=== PATIENT | male | born 1965 | race Caucasian/White ===

== ENCOUNTER 2020-01-11 12:29 | Inpatient (IN) | payer OTHER, SELFPAY ==
[2020-01-11] VITALS (18 sets, daily range): BP systolic 98–141; BP diastolic 61–83; PULSE 49–87; RESP 14–30; TEMP 35.8–37.5; O2SAT 80–99; BMI 26.2; BMI 25.5
[2020-01-11] MEDS: fentaNYL 100 MCG/2 ML Ampul 50 MCG IV (13:13)
[2020-01-11] MEDS: Ondansetron 4 MG/2 ML Vial IV (13:13)
--- NOTE | 2020-01-11 13:28 | EKG12_ITS ---
Test Reason : Blood Pressure : / mmHG Vent. Rate : 050 BPM Atrial Rate : 050 BPM P-R Int : 170 ms QRS Dur : 074 ms QT Int : 482 ms P-R-T Axes : 054 -47 028 degrees QTc Int : 439 ms Sinus bradycardia with Premature supraventricular complexes Left axis deviation Low voltage QRS Septal infarct , age undetermined Abnormal ECG Confirmed by CHRISTOPHER GRAYSON ([id number]), copy editor GLORIA CROCKETT ([id number]) on 01/14/2020 11:37:30 AM Referred By: CHAN Confirmed By:CHRISTOPHER GRAYSON
--- NOTE | 2020-01-11 13:29 | RAD_ITS ---
STUDY: X-RAY CHEST REASON FOR EXAM: Male, 54 years old. Severe abd pain since 11am abruptly started at work TECHNIQUE: Single AP portable view of the chest. COMPARISON: None. FINDINGS: EKG electrodes are seen. Hyperinflation. Scattered calcified granulomas. There is no demonstrated pleural abnormality. There is borderline cardiomegaly. Normal mediastinum and shara. Normal visualized pulmonary arteries. There is atherosclerotic tortuosity of the aortic arch and descending thoracic aorta. Normal visualized thoracic spine. Normal visualized ribs, clavicles, and shoulders. Gaseous distention of the visualized small bowel. RAD/Chest 1 View (Portable) IMPRESSION: Hyperinflation. No acute thoracic abnormality is seen. Electronically Signed: Amado Dawson, at 14:08 EDT , Service support ,
--- NOTE | 2020-01-11 13:36 | CT_ITS ---
STUDY: CT ABDOMEN AND PELVIS WITH CONTRAST REASON FOR EXAM: Male, 54 years old. SUDDEN ONSET ABD PAIN. FREE AIR AROUND DIAPHRAGM. RADIATION DOSAGE (If Supplied By Facility): CTDIvol = ( 16.07 ) mGy, DLP = ( 616.20 ) mGycm TECHNIQUE: Transaxial images were obtained from the dome of the diaphragm to the symphysis pubis without oral contrast. was administered. Sagittal and coronal images were reconstructed. Individualized dose optimization techniques were used for this CT. COMPARISON: None. FINDINGS: Mild degree of increased linear markings at the lung bases suggestive of a atelectasis and/or scarring. Mild increased markings are also seen along the posterior aspect of the lingular segment of the left upper lobe. Moderate sized pericardial effusion. Coronary artery calcification. Normal liver. Normal gallbladder and extrahepatic biliary system. Normal spleen. Normal pancreas. Normal bilateral adrenal glands. Normal right kidney. Normal left kidney. Fluid distention of the stomach with a small hiatal hernia with fluid in the distal esophagus. 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 The superior mesenteric vein is to the left of the superior mesenteric artery. There is evidence of a whirled pattern of the root of the mesentery with mesenteric edema. There is also evidence of small bowel dilatation as well as dilatation of the right hemicolon. Normal colon. The appendix is visualized and appears normal. There is diffuse atherosclerotic calcification of the abdominal aorta, without a demonstrated aneurysm. Normal inferior vena cava. Normal retroperitoneum. Normal urinary bladder. Normal abdominal wall. Normal osseous structures. CT/Abdomen/Pelvis W IV Cont ONLY IMPRESSION: Moderate pericardial effusion. 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 Electronically Signed: Amado Dawson, at 14:24 EDT , Service support ,
[2020-01-11 13:43] LABS: Absolute Lymphocyte Count 1.84 X10^3/uL (0.83-4.51); Absolute Neutrophil Count 7.6 X10^3/uL (2.0-7.7); Basophil# 0.11 X10^3/uL; Basophil% 1.1 % (0-1); Eosinophil# 0.29 X10^3/uL; Eosinophils% 2.8 % (0-5); Hematocrit 51.6 % (40-54); Hemoglobin 16.3 g/dL (13.0-16.5); Lymphocyte # 1.84 X10^3/ul (4.0); Lymphocyte % 17.6 % (19-41); Mean Corp Hgb Conc 31.6 g/dL (32-36); Mean Corpuscular Hgb 30.3 pg (27.0-32.0); Mean Corpuscular Volume 95.9 fL (80-94); Mean Platelet Vol. 10.8 fl (6.2-12.0); Monocyte# 0.57 X10^3/uL; Monocyte% 5.4 % (0-10); NRBC Flagged by Analyzer 0 % (0-5); Neutrophil % 72.5 % (47-70); Platelet Count 263 K/mm3 (150-450); RBC Distribution Width CV 14.5 % (11.6-14.6); RBC Distribution Width SD 50.8 fl (35.1-43.9); Red Blood Count 5.38 M/mm3 (4.6-6.2); White Blood Count 10.5 K/mm3 (4.4-11.0)
[2020-01-11] MEDS: Morphine 4 MG/ML Syringe 6 MG IV (13:43)
--- NOTE | 2020-01-11 13:49 | ED.DCSUM_ITS ---
History of Present Illness Chief Complaint: Abd Pain Informant: Patient - Abdominal Pain/Flank Pain Onset: Today Context: Sudden Onset Timing: Continuous Quality: Sharp Location: Diffuse Current Severity: Severe Maximum Severity: Severe Worsened by: Movement Relieved by: Nothing - Nausea/Vomiting/Emesis GI Symptom: Nausea, Vomiting Onset: Today Quality: Nonbilious - Diarrhea/Melena/Hematochezia GI Symptom: Negative for: Diarrhea Narrative: Patient is a 54-year-old male with history of gastric ulcers and a questionable stomach or esophageal mass presenting with sudden onset of abdominal pain. Patient had sudden onset of diffuse abdominal pain at 11 AM today. EMS was called because the pain was so severe. Patient states he had pain like this in the past with GERD but is never been this severe. Patient's last EGD was 6 months to a year ago. He was following up with a doctor at [facility] next had a follow-up appointment 2 months ago but did not want a follow-up he was tired of seeing doctors. Patient had associated nausea and vomiting with this pain. He states he has only been passing gas today. He notes he does have a history of small bowel obstruction that was treated medically. Patient has any other complaints at this time. Past Medical History - Allergies and Home Meds Allergies/Adverse Reactions: Allergies No Known Allergies Allergy (Verified 01/11/20 12:38) Past Medical History: - - GERD, history of small bowel obstruction Surgical History: - - EGD Lives: Spouse/ Significant Other Smoking Status: Current every day smoker Alcohol: Occasional Drugs: None - Family History Maternal Family History: Reports: No pertinent history Review of Systems General: Denies: Chills, Fever, Sweats Eyes: Denies: Visual changes - bilaterally, Diplopia ENT: Denies: Rhinorrhea, Sore throat Cardiovascular: Denies: Chest pain, Palpitations Respiratory: Denies: Dyspnea, Cough, Dyspnea on exertion Gastrointestinal: Reports: Abdominal pain, Vomiting. Denies: Diarrhea, Melena, Hematochezia Genitourinary: Denies: Dysuria, Hematuria, Frequency Musculoskeletal: Denies: Back pain, Extremity Pain Skin: Denies: Rash, Wounds Neurological: Denies: Headache, Weakness, Numbness Physical Exam Vital Signs/Narrative: Vital Signs Temp Pulse Resp BP Pulse Ox 01/11/20 13:30 49 L 24 H 125/79 H 92 01/11/20 12:30 96.4 F L 69 30 H 136/83 H 95 Inital Vital Signs reviewed: Yes General: Well nourished, Well developed, No Acute Distress Head: Normocephalic, Atraumatic Eyes: Perrl, EOMI ENT: Moist mucous membranes, No rhinorrhea Neck: Supple, Nontender Cardiovascular: Regular rate, Regular rhythm, No murmurs Respiratory: No distress, CTA bilaterally, Chest nontender Abdomen: Tender, Guarding, Hypoactive bowel sounds, - - Abdomen distended, diffusely tender. Pain is out of proportion to exam. Back: Nontender, Normal Inspection Extremities: Nontender, No edema, - - 2 Plus bilateral pedal pulses. Skin: Normal color, No rash Neurological: Alert, Oriented x3, Cranial nerves II-XII grossly intact, Normal Strength, Normal Sensation Psychological: Normal affect, Normal Mood Diagnostic/Tx/Re-eval Clinical Impression(s) from Imaging Studies Chest X-Ray 01/11/20 13:29 IMPRESSION: Hyperinflation. No acute thoracic abnormality is seen. Electronically Signed: Amado Dawson, at 14:08 EDT , Service support , Abdomen/Pelvis CT 01/11/20 13:36 IMPRESSION: Moderate pericardial effusion. 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 Electronically Signed: Amado Dawson, at 14:24 EDT , Service support , Laboratory Data 01/11/20 01/11/20 01/11/20 12:36 12:40 12:40 WBC 10.5 RBC 5.38 Hgb 16.3 Hct 51.6 MCV 95.9 H MCH 30.3 MCHC 31.6 L RDW Std Deviation 50.8 H RDW Coeff of Julius 14.5 Plt Count 263 MPV 10.8 Immature Gran % (Auto) 0.600 Neut % (Auto) 72.5 H Lymph % (Auto) 17.6 L [place] % (Auto) 5.4 Eos % (Auto) 2.8 Baso % (Auto) 1.1 H Absolute Neuts (auto) 7.6 Absolute Lymphs (auto) 1.84 Nucleated RBC % 0 Sodium 139 Potassium 3.8 Chloride 108 H Carbon Dioxide 23.0 Anion Gap 8 BUN 13 Creatinine 1.25 Estim Creat Clear Calc 69.76 Est GFR (MDRD) Af Amer 77 Est GFR (MDRD) Non-Af 64 BUN/Creatinine Ratio 10.4 Glucose 145 H Lactic Acid Calcium 8.9 Total Bilirubin 0.50 AST 25 ALT 27 Alkaline Phosphatase 106 Troponin I < 0.015 Total Protein 7.8 Albumin 3.8 Globulin 4.0 Albumin/Globulin Ratio 1.0 Lipase 187 POC Glucose 101 01/10/ 12:40 WBC RBC Hgb Hct MCV MCH MCHC RDW Std Deviation RDW Coeff of Julius Plt Count MPV Immature Gran % (Auto) Neut % (Auto) Lymph % (Auto) [place] % (Auto) Eos % (Auto) Baso % (Auto) Absolute Neuts (auto) Absolute Lymphs (auto) Nucleated RBC % Sodium Potassium Chloride Carbon Dioxide Anion Gap BUN Creatinine Estim Creat Clear Calc Est GFR (MDRD) Af Amer Est GFR (MDRD) Non-Af BUN/Creatinine Ratio Glucose Lactic Acid 4.1 H* Calcium Total Bilirubin AST ALT Alkaline Phosphatase Troponin I Total Protein Albumin Globulin Albumin/Globulin Ratio Lipase POC Glucose - Rhythm Strip Rhythm Strip: Sinus Rhythm Rate: 50 Ectopy: None - EKG Initial EKG Interpretation: Sinus Bradycardia, - - Sinus bradycardia at a rate of 50 Left axis deviation Low voltage QRS Sinus arrhythmia presents Normal ST segments - Medical Decision Making Patient is evaluated for sudden onset of abdominal pain. On exam he has a peritoneal abdomen with pain out of proportion. He is given multiple doses of pain medication without significant improvement of his pain. Initial differential includes acute perforation, gut and possibly dissection. I initially ordered a CTA study but also a upright chest looking for free air. X- ray was concerning for free air so CTA of the chest abdomen pelvis was then changed to a CT abdomen pelvis with IV contrast. Surgery was contacted before any imaging was resulted in my high clinical concern. Lactate is elevated at 4.4. I do not suspect acute infection, I suspect this is from whenever surgical emergency is going on. CT showed midgut volvulus. This explains patient's presentation. Surgery was informed of this and will take patient emergently to the OR. He is given IV Zosyn per surgery's recommendation. Patient and his are agreeable with this plan. Patient remains hemodynamically stable in the emergency room. ED Disposition - Plan for ED Patient: Disposition: Acute Care Hospital [facility] Diagnosis: Midgut volvulus, Acute abdominal pain, Lactic acidosis
[2020-01-11 13:59] LABS: AST(SGOT) 25 U/L (15-37); Alanine Aminotransfer ALT/SGPT 27 U/L (16-61); Albumin, Serum 3.8 g/dL (3.2-5.0); Alkaline Phosphatase 106 U/L (45-117); Anion Gap 8 (5-15); BUN 13 mg/dL (7-18); BUN/Creat Ratio 10.4 RATIO (10-20); Calcium,Total 8.9 mg/dL (8.5-10.1); Chloride 108 mmol/L (98-107); Creatinine, Serum 1.25 mg/dL (0.70-1.30); EST Glomerular Filtration Rate 64 mL/min (>60); Est Glom Filt Rate - Afr Amer 77 mL/min (>60); Estimated Creatinine Clearance 69.76 ml/min; Glucose 145 mg/dL (74-106); Lipase 187 U/L (73-393); Potassium 3.8 mmol/L (3.5-5.1); Protein, Total 7.8 g/dL (6.4-8.2); Sodium Level 139 mmol/L (136-145)
[2020-01-11 14:01] LABS: Lactic Acid 4.1 mmol/L (0.4-1.9)
[2020-01-11 14:21] LABS: Bedside Glucose 101 mg/dL (70-110)
[2020-01-11] MEDS: HYDROmorphone 1 MG/ML Syringe IV (14:45)
--- NOTE | 2020-01-11 14:51 | HP.PCM_ITS ---
History of Present Illness Date of Admission: 01/11/20 The patient is a 54 year old M presented to the ER due to diffuse abdominal pain started at 1030 this morning. Patient had nausea did not have any vomiting last bowel movement was normal last night. Patient states he does have a history of having bowel obstruction in the past which resolved without surgery. Patient has had umbilical hernia repair with mesh and a laparoscopic cholecystectomy in the past. Patient CT abdomen pelvis shows twisting of the small bowel mesentery, white blood cell count normal with left shift, lactic acid 4.4. Patient states he had a colonoscopy about a year ago which was normal. Previous abdominal surgeries include laparoscopic cholecystectomy, right inguinal hernia repair with mesh open. Past Medical History Medical History: Medical History (Last Updated 01/11/20 @ 17:[address] Lee Ann English MD) GERD (gastroesophageal reflux disease) (Acute) K21.9 Allergies No Known Allergies Allergy (Verified 01/11/20 12:38) Home Medications: Ambulatory Orders Medication Instructions Recorded Reflux Pill 01/11/20 Surgical History: cholecystectomy, - - Right inguinal hernia repair with mesh, EGD/colonoscopy Psychiatric History: No pertinent psych hx Lives: Spouse/ Significant Other Smoking Status: Current every day smoker Alcohol: Occasional Drugs: None - *Family History Maternal History Items: No pertinent history Review of Systems Constitutional: Reports: Anorexia Eyes: Denies: Blurred vision Gastrointestinal: Reports: Abdominal Pain, Nausea VTE Information - Inpt Only VTE Present on Admission: Yes VTE Mechan Device Prophylaxis: SCD's VTE Pharm Prophylaxis ordered?: No - Physical Exam Vitals/I&O's: Vital Signs Temp Pulse Resp BP Pulse Ox 96.4 F L 49 L 24 H 125/79 H 92 01/11/20 12:30 01/11/20 13:30 01/11/20 13:30 01/11/20 13:30 01/11/20 13:30 Oxygen Delivery Method Room Air Weight: 182 lb 8.684 oz Body Mass Index (BMI) 26.2 Finger Stick Blood Glucose 101 General: Alert, Cooperative, - - No acute distress Lungs: Normal air movement Cardiovascular: Regular rate Abdomen: Distended - Moderate, Tender - Diffusely, guarding equivocal rebound Extremities: No clubbing, No cyanosis, No edema Neurological: Cranial nerves II-XII grossly intact Psych/Mental Status: Agitated - Due to pain Laboratory Results 01/11/20 12:36: POC Glucose 101 01/11/20 12:40: WBC 10.5, RBC 5.38, Hgb 16.3, Hct 51.6, MCV 95.9 H, MCH 30.3, MCHC 31.6 L, RDW Std Deviation 50.8 H, RDW Coeff of Julius 14.5, Plt Count 263, MPV 10.8, Immature Gran % (Auto) 0.600, Neut % (Auto) 72.5 H, Lymph % (Auto) 17.6 L, [place] % (Auto) 5.4, Eos % (Auto) 2.8, Baso % (Auto) 1.1 H, Absolute Neuts (auto) 7.6, Absolute Lymphs (auto) 1.84, Nucleated RBC % 0 01/11/20 12:40: Sodium 139, Potassium 3.8, Chloride 108 H, Carbon Dioxide 23.0, Anion Gap 8, BUN 13, Creatinine 1.25, Estim Creat Clear Calc 69.76, Est GFR (MDRD) Af Amer 77, Est GFR (MDRD) Non-Af 64, BUN/Creatinine Ratio 10.4, Glucose 145 H, Calcium 8.9, Total Bilirubin 0.50, AST 25, ALT 27, Alkaline Phosphatase 106, Troponin I < 0.015, Total Protein 7.8, Albumin 3.8, Globulin 4.0, Album in/Globulin Ratio 1.0, Lipase 187 01/11/20 12:40: Lactic Acid 4.1 H* Current Medications Sodium Chloride () 1,000 mls @ 999 mls/hr IV .Q1H1M ONE Stop: 01/11/20 14:56 Piperacillin Sod/Tazobactam (Sod 3.375 gm/ Sodium Chloride) 50 mls @ 100 mls/hr IV X1 ONE Stop: 01/11/20 15:01 Assessment/Plan 54-year-old male with diffuse abdominal pain, CT abdomen pelvis consistent with twisting of the mesentery, elevated lactic acid 1. Will take patient urgently for exploratory laparoscopic, possible laparotomy, possible bowel resection, possible stoma the patient and his .. Discussed procedure including risk not limited to bleeding, infection, injury to another organ, need for further surgery, patient had no further questions at this time. Procedure essential: Yes On 09/29/2019 the [place] Department of Health ([facility]) Public Order signed by [facility] Director Aleta Jennings M.D., regarding the Management of Non-Essential Surgeries and Procedures for the purpose of preserving Personal Protective Equipment (PPE) and critical hospital capacity and resources within [place] went into effect as of 09/30/2019 at 5:00PM. According to the [facility] Public Order: This action will remain in full force and effect until the State of Emergency declared by the Governor no longer exists or the Director of the [facility] rescinds or modifies this Order. This [facility] order stated all non-essential or elective surgeries and procedures that utilize PPE should be delayed unless there is undue risk to the current or future health of a patient. After reviewing the aforementioned [facility] Public Order and the patients clinical case, I have determined that the scheduled procedure meets the criteria to go forward. Reason for performing procedure: There is a threat to the patient?s life if the surgery or procedure is not performed.
[2020-01-11] MEDS: 0.9% Normal Saline 1,000 ML 999 ML IV (14:54)
--- NOTE | 2020-01-11 14:55 | NURSING ---
SURGERY ROBOTHEM MID GUT VOLVULOUS
--- NOTE | 2020-01-11 15:00 | ED.RN ---
dr carson at bedside. dr reported to hold ng and iv/bloodwork. does not want to delay going to surgery they will get in ac/surgery.
[2020-01-11] MEDS: Bupiv/Epi 0.5% Mpf 30 ML Vial (15:07)
--- NOTE | 2020-01-11 16:54 | PCM.OPRPT ---
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 Surgery/Procedure Performed:: Exploratory laparoscopic, converted to laparotomy and twisting of small bowel mesentery fryer operator: [place] Type of Anesthesia:: General/Supplemental Anesthesiologist: Isidoro Dempsey Special Medications: Zosyn 3.375 g IV x1 given in the ER Specimen's removed: none Drains: oden 100 cc during case, 350 cc initial, NG- 450 cc Estimated Blood Loss (mL): <10 cc Fluids Replaced: 1000 cc Description of Procedure: Indications: 54-year-old male presents the ER due to abdominal pain CT abdomen pelvis was done which was consistent with mesenteric volvulus, patient had normal white blood count with left shift, lactic acid of 4.4 and pain out of proportion. Patient was emergently taken to the OR for exploratory laparoscopic, possible laparotomy. Description of the procedure: Patient was placed supine on the operating table, general anesthesia was induced using COVID precautions as he was unable to be tested for COVID due to no test availability and emergent need of surgery. Patient was placed in the low lithotomy position, NG and Oden placed. Abdomen prepped and draped in usual sterile fashion. A supraumbilical incision was made with a 15 blade scalpel deepened to the fascia fascia was elevated and incised, peritoneum was elevated and incised. Entry into the abdomen was confirmed visually. The Grace trocar was placed in the abdomen was insufflated to 12 to 15 mmHg. Laparoscope was placed. There is no injury due to trocar placement. The bowel was noted to be very dilated, no obvious bowel but some looked like it was starting to become dusky, small amount of chylous ascites seen. Decision was made to convert to a laparotomy. 10 blade scalpel was used to make a midline incision deepened with electrocautery to the fascia. The pneumoperitoneum was released through viral filter prior to entering the abdomen. Once in the abdomen the small bowel was noted to be very dilated especially the proximal small bowel almost looked like haustra, there is noted to be a tight twist of the mesentery involving the superior mesenteric artery this was untwisted. There was some white changes to the central mesentery from likely lymphatic obstruction from this volvulus as well. The small bowel was ran completely and was all viable there is a good palpable pulse in the mesentery. The fluid was milked into the colon. There were some small lymphadenopathy in the central deep mesentery; however there is no obvious adenopathy near the small bowel, decided not to try to excise one of the lymph nodes as they were deep and likely reactive. Colon was also ran and filled with air/liquid no obvious lesions felt, liver palpated again no lesions on exam, NG was placed and confirmed placement in the stomach. Abdomen was irrigated with small amount of saline. The small bowel was reduced back into the abdomen. Hemostasis was assured. the fascia was closed with 1-0 PDS running suture. Local anesthesia of 0.5 Marcaine 30 cc were used throughout the case. And was closed with skin regine. Incision was dressed with 4 x 4's and tape. Patient was extubated. Patient tolerated procedure well was taken to the postanesthesia care unit in stable condition. - Complications None
[2020-01-11 17:41] LABS: Reflex Lactate? Y
[2020-01-11] MEDS: 0.9% Normal Saline 1,000 ML 130 ML IV ×2 (18:09→19:34)
[2020-01-11 21:20] LABS: Lactic Acid 1.3 mmol/L (0.4-1.9)
[2020-01-12] VITALS (9 sets, daily range): BP systolic 98–121; BP diastolic 63–81; PULSE 55–85; RESP 18–20; TEMP 36.6–37.2; O2SAT 77–98
[2020-01-12] MEDS: 0.9% Normal Saline 1,000 ML 130 ML IV (03:34)
[2020-01-12 05:10] LABS: Color, Urine Yellow (Yellow); Glucose, Dipstick Normal (Normal); Ketone-Dipstick 15 mg/dl (Negative); Leukocyte Esterase-Dipstick 100 /ul (Negative); Mucous, Urine 0 SEEN /hpf (<or=2+); Nitrite-Dipstick Negative (Negative); Occult Blood-Urine 250 /ul (Negative); Protein-Dipstick 30 mg/dl (Negative); Specific Gravity, Urine 1.025 (1.002-1.030); Squamous Epithelial Cells - UA 0 SEEN /hpf (0-5); Urine Bilirubin Dipstick Negative (Negative); Urine Clarity Sl. Cloudy (Clear); Urine Urobilinogen Normal (Normal)
[2020-01-12 06:00] LABS: Absolute Lymphocyte Count 0.86 X10^3/uL (0.83-4.51); Absolute Neutrophil Count 6.2 X10^3/uL (2.0-7.7); Basophil# 0.05 X10^3/uL; Basophil% 0.6 % (0-1); Eosinophil# 0.01 X10^3/uL; Eosinophils% 0.1 % (0-5); Hematocrit 45.8 % (40-54); Hemoglobin 14.6 g/dL (13.0-16.5); Lymphocyte # 0.86 X10^3/ul (4.0); Lymphocyte % 10.7 % (19-41); Mean Corp Hgb Conc 31.9 g/dL (32-36); Mean Corpuscular Hgb 30.5 pg (27.0-32.0); Mean Corpuscular Volume 95.6 fL (80-94); Monocyte# 0.85 X10^3/uL; Monocyte% 10.6 % (0-10); NRBC Flagged by Analyzer 0 % (0-5); Neutrophil # 6.22 X10^3/uL (2.7-7.7); Neutrophil % 77.8 % (47-70); Platelet Count 225 K/mm3 (150-450); RBC Distribution Width CV 14.5 % (11.6-14.6); Red Blood Count 4.79 M/mm3 (4.6-6.2)
[2020-01-12 06:43] LABS: Bacteria RARE /hpf (None Seen); Red Blood Cells-Urine 10-25 SEEN /hpf (0-5); Transitional Epithelial - Ur 0-5 SEEN /hpf (0-5); White Blood Cells 10-25 SEEN /hpf (0-5)
[2020-01-12 06:51] LABS: Anion Gap 5 (5-15); BUN 13 mg/dL (7-18); BUN/Creat Ratio 12.5 RATIO (10-20); Calcium,Total 7.3 mg/dL (8.5-10.1); Chloride 114 mmol/L (98-107); Creatinine, Serum 1.04 mg/dL (0.70-1.30); EST Glomerular Filtration Rate 79 mL/min (>60); Est Glom Filt Rate - Afr Amer 96 mL/min (>60); Estimated Creatinine Clearance 83.84 ml/min; Glucose 97 mg/dL (74-106); Sodium Level 140 mmol/L (136-145)
--- NOTE | 2020-01-12 08:59 | PCM.PN.SRG ---
Patient Problems: Active and Suspected Problems (Last Updated 01/11/20 @ 17:[address] Lee Ann English MD) Midgut volvulus (Acute) Acute abdominal pain (Acute) Lactic acidosis (Acute) GERD (gastroesophageal reflux disease) (Acute) Subjective: Patient's Arora was removed this morning due to getting urine output, patient denies abdominal pain has not had any pain meds, would like the NG out however it did put out 500ccovernight - Physical Exam Vitals/I&O's: Vital Signs Temp Pulse Resp BP Pulse Ox 98.9 F 66 18 104/67 98 01/12/20 06:07 01/12/20 06:07 01/12/20 06:07 01/12/20 06:07 01/12/20 06:07 Oxygen Flow Rate (L/min) 6 Oxygen Delivery Method Simple Mask Weight: 178 lb Body Mass Index (BMI) 25.5 Finger Stick Blood Glucose 101 Intake and Output for Last 24 Hours 01/10/20 01/11/20 01/12/20 23:59 23:59 23:59 Intake Total 3199 / 3199 957.67 / 957.67 Output Total 550 / 925 825 / 825 Balance 2649 / 2274 132.67 / 132.67 General: Alert, Oriented x3, Cooperative, No apparent distress Lungs: Normal air movement Cardiovascular: Regular rate Abdomen: Soft, Distended - Mild to moderate, Tender - mild near incision dressed with gauze and tape, no peritoneal signs Extremities: No clubbing, No cyanosis, No edema Laboratory Results 01/11/20 12:36: POC Glucose 101 01/11/20 12:40: WBC 10.5, RBC 5.38, Hgb 16.3, Hct 51.6, MCV 95.9 H, MCH 30.3, MCHC 31.6 L, RDW Std Deviation 50.8 H, RDW Coeff of Julius 14.5, Plt Count 263, MPV 10.8, Immature Gran % (Auto) 0.600, Neut % (Auto) 72.5 H, Lymph % (Auto) 17.6 L, Barber % (Auto) 5.4, Eos % (Auto) 2.8, Baso % (Auto) 1.1 H, Absolute Neuts (auto) 7.6, Absolute Lymphs (auto) 1.84, Nucleated RBC % 0 01/11/20 12:40: Sodium 139, Potassium 3.8, Chloride 108 H, Carbon Dioxide 23.0, Anion Gap 8, BUN 13, Creatinine 1.25, Estim Creat Clear Calc 69.76, Est GFR (MDRD) Af Amer 77, Est GFR (MDRD) Non-Af 64, BUN/Creatinine Ratio 10.4, Glucose 145 H, Calcium 8.9, Total Bilirubin 0.50, AST 25, ALT 27, Alkaline Phosphatase 106, Troponin I < 0.015, Total Protein 7.8, Albumin 3.8, Globulin 4.0, Albumin/Globulin Ratio 1.0, Lipase 187 01/11/20 12:40: Lactic Acid 4.1 H* 01/11/20 12:40: Magnesium 2.0 01/11/20 20:24: Lactic Acid 1.3 01/12/20 05:00: Urine Color Yellow, Urine Clarity Sl. Cloudy, Urine pH 5.0, Ur Specific Antlers 1.025, Urine Protein 30 H, Urine Glucose (UA) Normal, Urine Ketones 15 H, Urine Occult Blood 250 H, Urine Nitrite Negative, Urine Bilirubin Negative, Urine Urobilinogen Normal, Ur Leukocyte Esterase 100 H, Urine RBC 10-25 SEEN, Urine WBC 10-25 SEEN, Ur Squamous Epith Cells 0 SEEN, Ur Transition Epith Cell 0-5 SEEN, Urine Bacteria RARE, Urine Mucus 0 SEEN 01/12/20 05:48: WBC 8.0, RBC 4.79, Hgb 14.6, Hct 45.8, MCV 95.6 H, MCH 30.5, MCHC 31.9 L, RDW Std Deviation 51.0 H, RDW Coeff of Julius 14.5, Plt Count 225, MPV 10.0, Immature Gran % (Auto) 0.200, Neut % (Auto) 77.8 H, Lymph % (Auto) 10.7 L, Barber % (Auto) 10.6 H, Eos % (Auto) 0.1, Baso % (Auto) 0.6, Absolute Neuts (auto) 6.2, Absolute Lymphs (auto) 0.86, Nucleated RBC % 0 01/12/20 05:48: Sodium 140, Potassium 4.0, Chloride 114 H, Carbon Dioxide 21.0, Anion Gap 5, BUN 13, Creatinine 1.04, Estim Creat Clear Calc 83.84, Est GFR (MDRD) Af Amer 96, Est GFR (MDRD) Non-Af 79, BUN/Creatinine Ratio 12.5, Glucose 97, Calcium 7.3 L Current Medications Enoxaparin Sodium (Lovenox) 40 mg SC DAILY ISABELLA Pantoprazole Sodium 40 mg/ (Sodium Chloride) 110 mls @ 330 mls/hr IV Q24 ISABELLA Last Infusion: 01/11/20 20:12 Dose: Infused Documented by: Sodium Chloride () 1,000 mls @ 100 mls/hr IV .Q10H ISABELLA Morphine Sulfate () 2 - 4 mg IV Q2H PRN PRN PRN Reason: Pain Score 1-10/10 Morphine Sulfate () 2 - 4 mg IV Q2H PRN PRN PRN Reason: Pain Score 1-10/10 Nicotine (Nicoderm Cq (Pbkc)) 21 mg TRANSDERM. DAILY ISABELLA Last Admin: 01/11/20 22:23 Dose: Not Given Documented by: Ondansetron HCl (Zofran) 4 mg IV Q8H PRN PRN PRN Reason: NAUSEA Sodium Chloride () 10 - 40 ml IV UD PRN PRN Reason: SALINE FLUSH Throat Lozenges (Cepacol Sore Throat Lozenge) 1 - 2 lozenge MUCOUS MEM Q2H PRN PRN PRN Reason: SORE THROAT Medical Necessity - Tobacco Use Smoking Status: Current every day smoker Assessment/Plan All Active Problems (Last Updated 01/11/20 @ 17:[address] Lee Ann English MD) Midgut volvulus (Acute) Acute abdominal pain (Acute) Lactic acidosis (Acute) GERD (gastroesophageal reflux disease) (Acute) 54-year-old male Postop day 1 status post exploratory laparoscopic converted to laparotomy with untwisting of the small bowel mesentery 1. Continue n.p.o./IV fluids and NG. We will clamp NG and check residual in 2 to 3 hours. Patient denies any flatus or bowel movement or nausea. Await bowel function 2. Encourage ambulation 3. PPI due to reflux, Lovenox ordered 4. Arora removed this morning for a good urine output Lee Ann English M.D. Pager: [phone] [facility] [address] [place] [address], [facility], [address] [place], [place] [id number] Office: [phone]
[2020-01-12] MEDS: 0.45% Normal Saline 1,000 ML 100 ML IV ×2 (09:28→20:00)
[2020-01-12] MEDS: Morphine 4 MG/ML Syringe IV ×2 (09:31→15:04)
[2020-01-12] MEDS: BENZOCAINE/MENTHOL 1 LOZENGE MUCOUS MEM (09:32)
[2020-01-12] MEDS: Enoxaparin 40 MG/0.4 ML Syringe SC (09:37)
--- NOTE | 2020-01-12 11:05 | CASEMGMT ---
RN CM Face to Face with patient for initial transition planning/care coordination assessment. RN CM introduced self and role at [facility]. Patient lying in bed, alert and oriented, at bedside. Patient willing to participate in assessment and is able to answer all questions appropriately. Care providers, pharmacy, and demographics verified. Patient wishes to discharge home, denies need for home health at this time. Patient states he has no further needs or concerns at this time. CM to follow for discharge planning needs that may arise. PCP: Bruce Specialists: JESSICA Pyle Preferred Pharmacy: Donovan Armas [facility] Retail at discharge Insurance: [employer] Prescription Benefit: yes Living Will/HPOA: yes, Stefanie Banks LNOK: Living Arrangements: Patient lives with in 2 story home. Patient independent at home. Transportation: self, DME/HHC: Patient denies any DME or previous HHC Disposition Plan: Patient to discharge home with family support and follow-up plans in place. Dottie HUN, RN, CM
[2020-01-12] MEDS: Morphine 2 MG/ML Syringe IV (21:53)
[2020-01-12] MEDS: 0.9% Saline Lock 10 ML Syringe IV (21:54)
[2020-01-13 05:30] VITALS: BP 108/72; PULSE 70; RESP 16; TEMP 36.7; O2SAT 94
[2020-01-13] MEDS: 0.45% Normal Saline 1,000 ML 100 ML IV ×2 (05:40→16:01)
[2020-01-13 07:09] VITALS: O2SAT 93
--- NOTE | 2020-01-13 07:55 | PN.SURG_ITS ---
Patient Problems: Active and Suspected Problems (Last Updated 01/11/20 @ 17:[address] Lee Ann English MD) Midgut volvulus (Acute) Acute abdominal pain (Acute) Lactic acidosis (Acute) GERD (gastroesophageal reflux disease) (Acute) Subjective: Patient states he has some soreness at the incision, only minimal flatus denies any nausea after NG removed yesterday. Patient has been able to void after Arora removed yesterday. - Physical Exam Vitals/I&O's: Vital Signs Temp Pulse Resp BP Pulse Ox 98.0 F 70 16 108/72 93 01/13/20 05:30 01/13/20 05:30 01/13/20 05:30 01/13/20 05:30 01/13/20 07:09 Oxygen Flow Rate (L/min) 5 Oxygen Delivery Method Room Air Weight: 177 lb 15.984 oz Body Mass Index (BMI) 25.5 Finger Stick Blood Glucose 101 Intake and Output for Last 24 Hours 01/11/20 01/12/20 01/13/20 23:59 23:59 23:59 Intake Total 3199 / 3199 2834.67 / 2909.67 1041.67 / 1041.67 Output Total 550 / 925 1275 / 1275 350 / 350 Balance 2649 / 2274 1559.67 / 1634.67 691.67 / 691.67 General: Alert, Oriented x3, Cooperative, No apparent distress Lungs: Normal air movement Cardiovascular: Regular rate Abdomen: Soft, Distended - Mild, Tender - Near incision clean dry and intact with regine, no peritoneal signs Extremities: No clubbing, No cyanosis, No edema Neurological: Cranial nerves II-XII grossly intact Psych/Mental Status: Normal Affect Laboratory Results 01/13/20 07:20: Sodium Pending, Potassium Pending, Chloride Pending, Carbon Dioxide Pending, Anion Gap Pending, BUN Pending, Creatinine Pending, Est GFR (MDRD) Af Amer Pending, Est GFR (MDRD) Non-Af Pending, BUN/Creatinine Ratio Pending, Glucose Pending, Calcium Pending Current Medications Enoxaparin Sodium (Lovenox) 40 mg SC DAILY [facility] Last Admin: 01/12/20 09:37 Dose: 40 mg Documented by: Pantoprazole Sodium 40 mg/ (Sodium Chloride) 110 mls @ 330 mls/hr IV Q24 [facility] Last Infusion: 01/12/20 10:00 Dose: Infused Documented by: Sodium Chloride () 1,000 mls @ 100 mls/hr IV .Q10H [facility] Last Admin: 01/13/20 05:40 Dose: 100 mls/hr Documented by: Morphine Sulfate () 2 - 4 mg IV Q2H PRN PRN PRN Reason: Pain Score 1-10/10 Last Admin: 01/12/20 21:53 Dose: 4 mg Documented by: Morphine Sulfate () 2 - 4 mg IV Q2H PRN PRN PRN Reason: Pain Score 1-10/10 Last Admin: 01/12/20 15:04 Dose: 4 mg Documented by: Nicotine (Nicoderm Cq (Pbkc)) 21 mg TRANSDERM. DAILY [facility] Last Admin: 01/12/20 09:34 Dose: 21 mg Documented by: Ondansetron HCl (Zofran) 4 mg IV Q8H PRN PRN PRN Reason: NAUSEA Sodium Chloride () 10 - 40 ml IV UD PRN PRN Reason: SALINE FLUSH Last Admin: 01/12/20 21:54 Dose: 10 ml Documented by: Throat Lozenges (Cepacol Sore Throat Lozenge) 1 - 2 lozenge MUCOUS MEM Q2H PRN PRN PRN Reason: SORE THROAT Last Admin: 01/12/20 09:32 Dose: 2 lozenge Documented by: Medical Necessity - Tobacco Use Smoking Status: Current every day smoker Assessment/Plan All Active Problems (Last Updated 01/11/20 @ 17:[address] Lee Ann English MD) Midgut volvulus (Acute) Acute abdominal pain (Acute) Lactic acidosis (Acute) GERD (gastroesophageal reflux disease) (Acute) 54-year-old male Postop day 2 status post exploratory laparoscopic converted to laparotomy with untwisting of the small bowel mesentery 1. Continue n.p.o./IV fluids until increased bowel function. 2. Encourage ambulation 3. PPI due to reflux, Lovenox ordered Lee Ann English M.D. Pager: [phone] [facility] [address] [place] [address], [facility], [address] [place] [address] Office: [phone]
[2020-01-13 08:02] LABS: Anion Gap 6 (5-15); BUN 11 mg/dL (7-18); BUN/Creat Ratio 13.4 RATIO (10-20); Calcium,Total 7.8 mg/dL (8.5-10.1); Chloride 112 mmol/L (98-107); Creatinine, Serum 0.82 mg/dL (0.70-1.30); EST Glomerular Filtration Rate 104 mL/min (>60); Est Glom Filt Rate - Afr Amer 126 mL/min (>60); Estimated Creatinine Clearance 106.33 ml/min; Glucose 78 mg/dL (74-106); Potassium 3.9 mmol/L (3.5-5.1); Sodium Level 138 mmol/L (136-145)
[2020-01-13] MEDS: Morphine 4 MG/ML Syringe IV (10:07)
[2020-01-13] MEDS: Enoxaparin 40 MG/0.4 ML Syringe SC (10:08)
[2020-01-13 11:30] VITALS: BP 111/67; PULSE 62; RESP 18; TEMP 36.6; O2SAT 92
[2020-01-13 16:13] VITALS: BP 125/84; PULSE 78; RESP 18; TEMP 36.7; O2SAT 93
[2020-01-13 22:13] VITALS: BP 126/90; PULSE 69; RESP 18; TEMP 36.6; O2SAT 96
[2020-01-14] MEDS: 0.45% Normal Saline 1,000 ML 100 ML IV (02:41)
[2020-01-14 04:13] VITALS: BP 108/73; PULSE 77; RESP 16; TEMP 36.7; O2SAT 94
[2020-01-14 05:00] VITALS: O2SAT 94
--- NOTE | 2020-01-14 07:16 | PCM.PN.SRG ---
Patient Problems: Active and Suspected Problems (Last Updated 01/11/20 @ 17:[address] Lee Ann English MD) Midgut volvulus (Acute) Acute abdominal pain (Acute) Lactic acidosis (Acute) GERD (gastroesophageal reflux disease) (Acute) Subjective: Patient tolerated clears denies any nausea or vomiting, is having a lot of flatus small bowel movement denies any abdominal pain since having the increased flatus - Physical Exam Vitals/I&O's: Vital Signs Temp Pulse Resp BP Pulse Ox 98.0 F 77 16 108/73 94 01/14/20 04:13 01/14/20 04:13 01/14/20 04:13 01/14/20 04:13 01/14/20 05:00 Oxygen Flow Rate (L/min) 2 Oxygen Delivery Method Nasal Cannula Weight: 177 lb 15.984 oz Body Mass Index (BMI) 25.5 Finger Stick Blood Glucose 101 Intake and Output for Last 24 Hours 01/12/20 01/13/20 01/14/20 23:59 23:59 23:59 Intake Total 2834.67 / 2909.67 2151.67 / 2551.67 1900 / 1900 Output Total 1275 / 1275 350 / 350 350 / 350 Balance 1559.67 / 1634.67 1801.67 / 2201.67 1550 / 1550 General: Alert, Oriented x3, Cooperative, No apparent distress HEENT: Atraumatic Lungs: Normal air movement Cardiovascular: Regular rate Abdomen: Soft, Non Tender, Non-Distended Extremities: No clubbing, No cyanosis, No edema Neurological: Cranial nerves II-XII grossly intact Psych/Mental Status: Normal Affect Laboratory Results 01/13/20 07:20: Sodium 138, Potassium 3.9, Chloride 112 H, Carbon Dioxide 20.0 L, Anion Gap 6, BUN 11, Creatinine 0.82, Estim Creat Clear Calc 106.33, Est GFR (MDRD) Af Amer 126, Est GFR (MDRD) Non-Af 104, BUN/Creatinine Ratio 13.4, Glucose 78, Calcium 7.8 L Current Medications Enoxaparin Sodium (Lovenox) 40 mg SC DAILY [facility] Last Admin: 01/13/20 10:08 Dose: 40 mg Documented by: Pantoprazole Sodium 40 mg/ (Sodium Chloride) 110 mls @ 330 mls/hr IV Q24 [facility] Last Infusion: 01/13/20 10:29 Dose: Infused Documented by: Sodium Chloride () 1,000 mls @ 100 mls/hr IV .Q10H [facility] Last Admin: 01/14/20 02:41 Dose: 100 mls/hr Documented by: Morphine Sulfate () 2 - 4 mg IV Q2H PRN PRN PRN Reason: Pain Score 1-1010 Last Admin: 01/12/20 21:53 Dose: 4 mg Documented by: Morphine Sulfate () 2 - 4 mg IV Q2H PRN PRN PRN Reason: Pain Score 1-1010 Last Admin: 01/13/20 10:07 Dose: 4 mg Documented by: Nicotine (Nicoderm Cq (Pbkc)) 21 mg TRANSDERM. DAILY [facility] Last Admin: 01/13/20 10:08 Dose: 21 mg Documented by: Ondansetron HCl (Zofran) 4 mg IV Q8H PRN PRN PRN Reason: NAUSEA Sodium Chloride () 10 - 40 ml IV UD PRN PRN Reason: SALINE FLUSH Last Admin: 01/12/20 21:54 Dose: 10 ml Documented by: Throat Lozenges (Cepacol Sore Throat Lozenge) 1 - 2 lozenge MUCOUS MEM Q2H PRN PRN PRN Reason: SORE THROAT Last Admin: 01/12/20 09:32 Dose: 2 lozenge Documented by: Medical Necessity - Tobacco Use Smoking Status: Current every day smoker Assessment/Plan All Active Problems (Last Updated 01/11/20 @ 17:[address] Lee Ann English MD) Midgut volvulus (Acute) Acute abdominal pain (Acute) Lactic acidosis (Acute) GERD (gastroesophageal reflux disease) (Acute) 54-year-old male Postop day 3 status post exploratory laparoscopic converted to laparotomy with untwisting of the small bowel mesentery 1. Patient is having flatus and small bowel movement. Tolerated clears, currently taking full's if tolerates regular diet okay for DC today. 2. Encourage ambulation 3. PPI due to reflux, Lovenox ordered We will also plan to obtain previous CT abdomen and chest from [facility] as ours did comment on a moderate pericardial effusion and it appears like 1 of the CAT scans in [facility] which I do not have the report from as it was from an outside facility not from [facility] also look to have pericardial effusion and that was back in 2019. Lee Ann English M.D. Pager: [phone] [facility] [address] [place] [address], [address] [place] [address] Office: [phone]
[2020-01-14 07:53] VITALS: O2SAT 88
[2020-01-14 08:02] VITALS: BP 113/81; PULSE 68; RESP 16; TEMP 36.6; O2SAT 93
--- NOTE | 2020-01-14 08:55 | DCINST_ITS ---
Discharge Diet: Light diet - advance as tolerated Discharge Activity: May not drive while taking narcotic pain medications. May shower in (days): 0 Lifting Restrictions: no lifting > 20lb x 2 wk, no strenous exercise x 5 weeks Call your doctor if your incision/area has: Continuous Slow Oozing, Sudden Increased Bleeding, Increased Pain/ Swelling, Increased Redness, Foul Smelling Discharge, Swelling at the incision site Call your doctor if you observe: Fever of 101 or Higher Remove Dressing in (days):: 0 - ok to remove today Additional Instructions: Okay to take ibuprofen 400-600 mg PO q6hr PRN along with the Percocet. Avoid Tylenol since there is already Tylenol in the Percocet. Take all pain meds with food. Allergies/Adverse Reactions: Allergies No Known Allergies Allergy (Verified 01/11/20 12:38) Medications to take at Discharge Pantoprazole Sodium [Protonix] 20 mg PO DAILY 01/11/20 Oxycodone HCl/Acetaminophen [Percocet 5/325] 1 - 2 tab PO Q6H PRN PRN 2 Days #10 tab 01/14/20 Primary Care Physician: Malathi Barrera NP-C [Primary Care Provider] - Test Results: Test results from this visit will be discussed in further detail at your follow- up appointment, if applicable. Please Follow Up With: Lee Ann English MD - After 5 PM and on the weekends call [phone] with any concerns When: Call the office [phone] for a f/u appt mid next wk for staple removal Proposed Discharge Date: 01/14/20
--- NOTE | 2020-01-14 09:04 | PCM.DC.SUM ---
Discharge Date and Diagnosis - Problem List Patient Problems: Active and Suspected Problems (Last Updated 01/11/20 @ 17:[address] Lee Ann English MD) Midgut volvulus (Acute) Acute abdominal pain (Acute) Lactic acidosis (Acute) GERD (gastroesophageal reflux disease) (Acute) Date of Admission: 01/11/20 Date of Discharge: 01/14/20 - Primary Discharge Diagnosis Acute Problems: Active Problems (Last Updated 01/11/20 @ 17:[address] Lee Ann English MD) Midgut volvulus (Acute) Acute abdominal pain (Acute) Lactic acidosis (Acute) GERD (gastroesophageal reflux disease) (Acute) - Secondary Discharge Diagnosis Chronic Problems: gerd Hospital Course and Treatment Imaging Results: Clinical Impression(s) from Imaging Studies Chest X-Ray 01/11/20 13:29 IMPRESSION: Hyperinflation. No acute thoracic abnormality is seen. Electronically Signed: Amado Dawson, at 14:08 EDT , Service support , Abdomen/Pelvis CT 01/11/20 13:36 IMPRESSION: Moderate pericardial effusion. 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 Electronically Signed: Amado Dawson, at 14:24 EDT , Service support , Operations: - - Exploratory laparoscopic converted to laparotomy with untwisting of the small bowel mesentery by Dr. English 01/11/2020 Procedures: None Summary of Care Provided: The patient is a 54 year old M patient presented to the ER due to diffuse abdominal pain which started this morning and got a lot worse by 10 AM. Patient has a history of occasional abdominal pain that would come and go nothing seemed to make better or worse patient thought it could be due to Protonix if he took the 40 mg instead of just the 20. Patient was seen at [facility] [place] [facility] in 2019 and manometry showed achalasia patient was plan to do POEM procedure however there is thickening of the distal esophagus so it was not done. Patient has been following with GI at [facility] Patient states he is never had pain this bad before. Had nausea denies any vomiting did have a bowel movement yesterday. Patient CT abdomen pelvis which showed twisting of the central mesentery with edema and dilated small bowel and what appeared to be colon and moderate pericardial effusion, patient's lactic acid was 4.4 had a normal white blood count with a left shift due to pain out of proportion patient was taken emergently for exploratory laparoscopically which was converted to laparotomy and the access of the superior mesenteric artery was noted to be twisted. This was untwisted and all bowel was viable. There is no noted of any obvious masses or adhesions in the small bowel or large bowel. Of note patient's proximal jejunum was dilated and also appears to have haustra which was the distended colon appearing in the CT abdomen pelvis. Patient previously had a small bowel follow-through at [facility] [place] [facility] which again this proximal jejunum appeared similarly. Postoperatively patient denied any abdominal pain did initially have an NG and Arora which were removed after bowel function and good urine output. By postop day 2 patient was having some flatus able to tolerate clears by postop day 3 patient was able to tolerate a regular diet and still denied any abdominal pain. Patient was able be DC'd home. Discussed with patient that he was on Protonix 40 mg IV throughout the hospitalization so his abdominal pain could have been from possible twisting and twisting of the bowels and not due to 40 mg of Protonix first thing 20 mg. Did encourage patient to continue on the Protonix. Also did discuss with patient as well as unsure why this did twist but there is no obvious adhesions or abnormal anatomy appreciated during surgery. We will attempt to get records from [facility] for the previous CT abdomen pelvis and chest reports as it appears he may have had a pericardial effusion at that time as well as I was able to view the images in the [employer] system but the reports were not available. Patient Problems: Active and Suspected Problems (Last Updated 01/11/20 @ 17:[address] Lee Ann English MD) Midgut volvulus (Acute) Acute abdominal pain (Acute) Lactic acidosis (Acute) GERD (gastroesophageal reflux disease) (Acute) - Physical Exam Vitals/I&O's: Vital Signs Temp Pulse Resp BP Pulse Ox 97.9 F 68 16 113/81 H 93 01/14/20 08:02 01/14/20 08:02 01/14/20 08:02 01/14/20 08:02 01/14/20 08:02 Oxygen Flow Rate (L/min) 2 Oxygen Delivery Method Room Air Weight: 177 lb 15.984 oz Body Mass Index (BMI) 25.5 Finger Stick Blood Glucose 101 Intake and Output for Last 24 Hours 01/12/20 01/13/20 01/14/20 23:59 23:59 23:59 Intake Total 2834.67 / 2909.67 2151.67 / 2551.67 2493.33 / 2493.33 Output Total 1275 / 1275 350 / 350 350 / 350 Balance 1559.67 / 1634.67 1801.67 / 2201.67 2143.33 / 2143.33 General: Alert, Oriented x3, Cooperative, No apparent distress HEENT: Atraumatic Lungs: Normal air movement Cardiovascular: Regular rate Abdomen: Soft, Non-Distended, Tender - Minimal tenderness at incision clean dry and intact with regine Extremities: No clubbing, No cyanosis, No edema Neurological: Cranial nerves II-XII grossly intact Psych/Mental Status: Normal Affect Current Medications Acetaminophen (Tylenol) 650 mg PO Q6H PRN PRN PRN Reason: Pain Score 1-10/10 Enoxaparin Sodium (Lovenox) 40 mg SC DAILY [facility] Last Admin: 01/13/20 10:08 Dose: 40 mg Documented by: Pantoprazole Sodium 40 mg/ (Sodium Chloride) 110 mls @ 330 mls/hr IV Q24 [facility] Last Infusion: 01/13/20 10:29 Dose: Infused Documented by: Morphine Sulfate () 2 - 4 mg IV Q2H PRN PRN PRN Reason: Pain Score 1-10/10 Last Admin: 01/12/20 21:53 Dose: 4 mg Documented by: Morphine Sulfate () 2 - 4 mg IV Q2H PRN PRN PRN Reason: Pain Score 1-10/10 Last Admin: 01/13/20 10:07 Dose: 4 mg Documented by: Nicotine (Nicoderm Cq (Pbkc)) 21 mg TRANSDERM. DAILY [facility] Last Admin: 01/13/20 10:08 Dose: 21 mg Documented by: Ondansetron HCl (Zofran) 4 mg IV Q8H PRN PRN PRN Reason: NAUSEA Oxycodone HCl (Oxyir) 5 - 10 mg PO Q4H PRN PRN PRN Reason: Pain Score 1-04/23 Sodium Chloride () 10 - 40 ml IV UD PRN PRN Reason: SALINE FLUSH Last Admin: 01/12/20 21:54 Dose: 10 ml Documented by: Throat Lozenges (Cepacol Sore Throat Lozenge) 1 - 2 lozenge MUCOUS MEM Q2H PRN PRN PRN Reason: SORE THROAT Last Admin: 01/12/20 09:32 Dose: 2 lozenge Documented by: Discharge Diet: Light diet - advance as tolerated Discharge Activity: May not drive while taking narcotic pain medications. May shower in (days): 0 Call your doctor if your incision/area has: Continuous Slow Oozing, Sudden Increased Bleeding, Increased Pain/ Swelling, Increased Redness, Foul Smelling Discharge, Swelling at the incision site Call your doctor if you observe: Fever of 101 or Higher Remove Dressing in (days):: 0 - ok to remove today Home Medications: Medications to take at Discharge Pantoprazole Sodium [Protonix] 20 mg PO DAILY 01/11/20 Oxycodone HCl/Acetaminophen [Percocet 5/325] 1 - 2 tab PO Q6H PRN PRN 2 Days #10 tab 01/14/20 Following Prescrptions Were Given to Patient: Oxycodone HCl/Acetaminophen [Percocet 5/325] 1 - 2 tab PO Q6H PRN PRN 2 Days #10 tab PRN Reason: Pain Transmission Status: Received by [facility] Primary Care Physician: Malathi Barrera NP-C [Primary Care Provider] - Please Follow Up With: Lee Ann English MD - After 5 PM and on the weekends call [phone] with any concerns When: Call the office [phone] for a f/u appt mid next wk for staple removal Additional Instructions: Okay to take ibuprofen 400-600 mg PO q6hr PRN along with the Percocet. Avoid Tylenol since there is already Tylenol in the Percocet. Take all pain meds with food. Disposition: Home Patient Condition:: Good Medical Necessity - Tobacco Use Smoking Status: Current every day smoker Meaningful Use Info Meaningful Use Diagnoses (Choose all that apply): None applicable
[2020-01-14] MEDS: 0.9% Saline Lock 10 ML Syringe IV (09:35)
--- NOTE | 2020-01-14 11:31 | PHA.DC.MC ---
Pharmacy Service has performed discharge medication reconciliation and counseling for this patient. 1. OXYCODONE/ACETAMINOPHEN 5/325MG 1-2 TABLETS PO Q6H PRN PAIN The patient's discharge medication list was reviewed for discrepancies and discrepancies were resolved. Home Medications Pantoprazole Sodium [Protonix] 20 mg PO DAILY 01/11/20 Oxycodone HCl/Acetaminophen [Percocet 5/325] 1 - 2 tab PO Q6H PRN PRN 2 Days #10 tab 01/14/20 The patient was counseled on the following discharge medications and changes in medications for homegoing were reviewed. The Reason for Use, instructions for use, and potential side effects were reviewed for all new medications. The patient's questions regarding all of their medications were answered. The patient was able to verbally demonstrate an understanding of their discharge medications.
--- NOTE | 2020-01-14 11:59 | NURSING ---
family at bedside
== END 2020-01-14 12:35 | disposition home or self-care (01) | DRG 330 ==
LOC: ED 14:51 → SDC 15:00 → ACINP 15:01 → MS3 16:29 → SDC 18:16 → MS3 18:16
PROVIDERS: Admitting Provider Surgery; Emergency Provider Emergency Medicine; PCP Nurse Practitioner Family; Visit Provider Surgery
PROC: 0DS80ZZ Reposition Small Intestine, Open Approach (ICD-10-PCS; CPT 44202; principal; 2020-01-11 15:05)
DX: K56.2 Volvulus (principal); E87.2 Acidosis; Z53.31 Laparoscopic surgical procedure converted to open procedure; K21.9 Gastro-esophageal reflux disease without esophagitis; Z87.11 Personal history of peptic ulcer disease; Z87.891 Personal history of nicotine dependence
CPT/HCPCS: 36415; 71045; 74177; 80048; 80053; 81001; 82962; 83605; 83690; 83735; 84484; 85025; 93005; 99251; 99284; J7030; Q9967; A4216; G0463; J2405

== ENCOUNTER 2020-01-15 13:35 | Inpatient (IN) | payer OTHER, SELFPAY ==
[2020-01-11 19:16] VITALS: BMI 25.5
[2020-01-15] VITALS (7 sets, daily range): BP systolic 100–124; BP diastolic 63–94; PULSE 68–81; RESP 16–20; TEMP 36.4–37.2; O2SAT 85–96; BMI 25.1; BMI 23.4; BMI 23.5
--- NOTE | 2020-01-15 14:00 | CT_ITS ---
STUDY: CT ABDOMEN AND PELVIS WITH CONTRAST REASON FOR EXAM: Male, 54 years old. Recent volvulus, hematemesis RADIATION DOSAGE (If Supplied By Facility): CTDIvol = ( 9.055 ) mGy, DLP = ( 474.46 ) mGycm TECHNIQUE: CT images were obtained from the dome of the diaphragm to the symphysis pubis without oral contrast. Oral and amp; IV GASTROGRAFIN and amp; 100ML ISOVUE 370 was administered. Sagittal and coronal images were reconstructed. Individualized dose optimization techniques were used for this CT. COMPARISON: None. FINDINGS: There is bilateral basal atelectasis. There is a small pericardial effusion. There is reflux of contrast from stomach into the distal esophagus. Abdominal solid organs are normal. There is no intraabdominal free gas. There is a small amount of free fluid surrounding the liver and in the pelvis. There is midline in the parietal incision outlined by skin regine. There are dilated loops of small bowel interspersed with decompressed normal size loops. Colon contains gas and is decompressed. Previously seen abnormal whirled appearance of the mesentery has resolved. CT/Abdomen/Pelvis WITH Contrast IMPRESSION: 1. Presumed small bowel obstruction, possibly partial high-grade or functional/nonmechanical. Surgical consultation is advised. Electronically Signed: Sebastien Hobbs, at 15:53 EDT Tel , Service support ,
--- NOTE | 2020-01-15 14:01 | ED.DCSUM_ITS ---
History of Present Illness Chief Complaint: GI Bleed Informant: Patient Onset: Yesterday Narrative: Patient was admitted to the hospital on Saturday and discharged yesterday. 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 Patient was discharged in the hospital yesterday. He has had 4 episodes of vomiting since going home. He states the material he is bringing up looks like black coffee grounds. He denies fever or chills. He is wondering if the oral pain medication may be causing his vomiting as he had previously been on IV pain meds and states that his stomach does not tolerate oral pain meds well. He did have a normal bowel movement last evening. - Past Medical History (1) GERD (gastroesophageal reflux disease) Status: Chronic (2) Midgut volvulus Status: Resolved Past Medical History - Allergies and Home Meds Allergies/Adverse Reactions: Allergies No Known Allergies Allergy (Verified 01/11/20 12:38) Primary Care Physician: Malathi Barrera NP-C [Primary Care Provider] - Doctors: Dr. English Prior records reviewed: Yes Surgical History: cholecystectomy, - - Right inguinal hernia repair with mesh, EGD/colonoscopy Smoking Status: Current every day smoker - Family History Maternal Family History: Reports: No pertinent history Review of Systems General: Denies: Chills, Fever Eyes: Denies: Visual changes - bilaterally ENT: Denies: Bilateral ear pain Cardiovascular: Denies: Chest pain Respiratory: Denies: Dyspnea, Cough Gastrointestinal: Reports: Abdominal pain, Nausea, Vomiting Musculoskeletal: Denies: Extremity Pain Skin: Reports: Wounds Neurological: Denies: Headache Hematologic: Denies: Easy bruising, Easy bleeding Allergy: Denies: Uticaria Physical Exam Vital Signs/Narrative: Vital Signs Temp Pulse Resp BP Pulse Ox 01/15/20 13:36 98 F 75 16 116/76 95 Inital Vital Signs reviewed: Yes General: Well nourished, Well developed Head: Normocephalic ENT: Moist mucous membranes Neck: Supple Cardiovascular: Regular rate, Regular rhythm Respiratory: No distress, CTA bilaterally Abdomen: Soft, Tender - Appropriate postop tenderness. Midline surgical incision intact and clean., Hypoactive bowel sounds Skin: Normal color Neurological: Alert Psychological: Normal affect, Normal Mood Diagnostic/Tx/Re-eval Impressions Abdomen/Pelvis CT 01/15/20 14:00 IMPRESSION: 1. Presumed small bowel obstruction, possibly partial high-grade or functional/nonmechanical. Surgical consultation is advised. Electronically Signed: Sebastien Hobbs, at 15:53 EDT Tel , Service support , 01/15/20 14:00 Abdomen/Pelvis WITH Contrast [CT] Stat 01/15/20 15:58 Abdomen Single View (Portable) [RAD] Stat Laboratory Results 01/15/20 01/15/20 14:30 14:30 WBC 11.8 H RBC 5.47 Hgb 16.7 H Hct 50.3 MCV 92.0 MCH 30.5 MCHC 33.2 RDW Std Deviation 47.3 H RDW Coeff of Julius 14.0 Plt Count 270 MPV 10.0 Immature Gran % (Auto) 0.400 Neut % (Auto) 81.1 H Lymph % (Auto) 9.5 L [place] % (Auto) 7.4 Eos % (Auto) 1.0 Baso % (Auto) 0.6 Absolute Neuts (auto) 9.5 H Absolute Lymphs (auto) 1.12 Nucleated RBC % 0 Sodium 140 Potassium 3.7 Chloride 105 Carbon Dioxide 28.0 Anion Gap 7 BUN 11 Creatinine 1.09 Estim Creat Clear Calc 79.99 Est GFR (MDRD) Af Amer 91 Est GFR (MDRD) Non-Af 75 BUN/Creatinine Ratio 10.1 Glucose 96 Calcium 8.7 - Medical Decision Making Patient was given Zofran for nausea. Dr. English reviewed the patient's work- up and images from home. She asked that we place an NG tube and she will come in to see the patient for admission. Patient is also ordered a dose of IV Protonix. Patient and family at bedside has been updated. ED Disposition - Plan for ED Patient: Disposition: Acute Care Hospital [facility] Diagnosis: Small bowel obstruction Referrals: Malathi Barrera, VIVEK-C [Primary Care Provider] -
[2020-01-15] MEDS: 0.9% Normal Saline 1,000 ML 150 ML IV (14:35)
[2020-01-15] MEDS: Ondansetron 4 MG/2 ML Vial IV (14:36)
[2020-01-15 14:41] LABS: Absolute Lymphocyte Count 1.12 X10^3/uL (0.83-4.51); Absolute Neutrophil Count 9.5 X10^3/uL (2.0-7.7); Basophil# 0.07 X10^3/uL; Basophil% 0.6 % (0-1); Eosinophil# 0.12 X10^3/uL; Hematocrit 50.3 % (40-54); Hemoglobin 16.7 g/dL (13.0-16.5); Lymphocyte # 1.12 X10^3/ul (4.0); Lymphocyte % 9.5 % (19-41); Mean Corp Hgb Conc 33.2 g/dL (32-36); Mean Corpuscular Hgb 30.5 pg (27.0-32.0); Monocyte# 0.87 X10^3/uL; Monocyte% 7.4 % (0-10); NRBC Flagged by Analyzer 0 % (0-5); Neutrophil # 9.53 X10^3/uL (2.7-7.7); Neutrophil % 81.1 % (47-70); Platelet Count 270 K/mm3 (150-450); RBC Distribution Width SD 47.3 fl (35.1-43.9); Red Blood Count 5.47 M/mm3 (4.6-6.2); White Blood Count 11.8 K/mm3 (4.4-11.0)
[2020-01-15 14:53] LABS: Anion Gap 7 (5-15); BUN 11 mg/dL (7-18); BUN/Creat Ratio 10.1 RATIO (10-20); Calcium,Total 8.7 mg/dL (8.5-10.1); Chloride 105 mmol/L (98-107); Creatinine, Serum 1.09 mg/dL (0.70-1.30); EST Glomerular Filtration Rate 75 mL/min (>60); Est Glom Filt Rate - Afr Amer 91 mL/min (>60); Estimated Creatinine Clearance 79.99 ml/min; Glucose 96 mg/dL (74-106); Potassium 3.7 mmol/L (3.5-5.1); Sodium Level 140 mmol/L (136-145)
--- NOTE | 2020-01-15 16:07 | NURSING ---
MED SURG SOB ROBOTHAM
[2020-01-15] MEDS: Lidocaine 4% 5 ML Ampul 2 ML INHALATION (16:24)
[2020-01-15] MEDS: Oxymetazoline 0.05% 1 SPRAY SPRAY.BTL 2 SPRAY NASAL (16:25)
--- NOTE | 2020-01-15 16:52 | PCM.HP.STD ---
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 Patient was not having abdominal pain when he left and was able to tolerate food. Patient states starting towards the evening he started noting some abdominal discomfort and by 8 PM was vomiting he states it was dark, coffee-ground he had several episodes of nausea and vomiting. Patient did call and I suggested they go to the ER. On ER work-up patient was found to have a blood count is 11.4 with a left shift, lactic acid pending, CT abdomen pelvis was done which does show dilated stomach and proximal small bowel, there is no noted volvulus of the mesentery on CT abdomen pelvis. Patient reports normal bowel function yesterday and this morning. Patient thought initially could be the pain meds that were causing issues with his stomach as he states he has a very sensitive stomach. Past Medical History Past Medical History (Chronic Problems): Chronic Problems (Last Updated 01/15/20 @ 14:[address] Lee Ann English MD) S/P right inguinal hernia repair (Chronic) GERD (gastroesophageal reflux disease) (Chronic) Medical History: Medical History (Last Updated 01/15/20 @ 14:[address] Lee Ann English MD) Achalasia (Acute) K22.0 dx at [facility] GERD (gastroesophageal reflux disease) (Chronic) K21.9 Allergies No Known Allergies Allergy (Verified 01/11/20 12:38) Home Medications: Ambulatory Orders Medication Instructions Recorded Pantoprazole Sodium [Protonix] 20 mg PO DAILY 01/11/20 Oxycodone HCl/Acetaminophen 1 - 2 tab PO Q6H PRN PRN 2 Days 01/14/20 [Percocet 5/325] #10 tab Surgical History: Surgical History (Last Updated 01/15/20 @ 14:[address] 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 Lee Ann English MD) Small bowel obstruction (Acute) - Physical Exam Vitals/I&O's: Vital Signs Temp Pulse Resp BP Pulse Ox 98 F 75 16 116/76 95 01/15/20 13:36 01/15/20 13:36 01/15/20 13:36 01/15/20 13:36 01/15/20 13:36 Oxygen Delivery Method Room Air Weight: 175 lb Body Mass Index (BMI) 25.1 Finger Stick Blood Glucose 101 General: Alert, Oriented x3, Cooperative, No apparent distress Lungs: Normal air movement Cardiovascular: Regular rate Abdomen: Soft, Non-Distended, Tender - Mostly on the right, no peritoneal signs, - - Incision clean dry and intact with regine mild erythema near regine Extremities: No clubbing, No cyanosis, No edema Neurological: Cranial nerves II-XII grossly intact Psych/Mental Status: Normal Affect Laboratory Results 01/15/20 14:30: WBC 11.8 H, RBC 5.47, Hgb 16.7 H, Hct 50.3, MCV 92.0, MCH 30.5, MCHC 33.2, RDW Std Deviation 47.3 H, RDW Coeff of Julius 14.0, Plt Count 270, MPV 10.0, Immature Gran % (Auto) 0.400, Neut % (Auto) 81.1 H, Lymph % (Auto) 9.5 L, [place] % (Auto) 7.4, Eos % (Auto) 1.0, Baso % (Auto) 0.6, Absolute Neuts (auto) 9.5 H, Absolute Lymphs (auto) 1.12, Nucleated RBC % 0 01/15/20 14:30: Sodium 140, Potassium 3.7, Chloride 105, Carbon Dioxide 28.0, Anion Gap 7, BUN 11, Creatinine 1.09, Estim Creat Clear Calc 79.99, Est GFR (MDRD) Af Amer 91, Est GFR (MDRD) Non-Af 75, BUN/Creatinine Ratio 10.1, Glucose 96, Calcium 8.7 01/15/20 16:45: Lactic Acid Pending Current Medications Sodium Chloride () 1,000 mls @ 150 mls/hr IV .[id number] [facility] Last Admin: 01/15/20 14:35 Dose: 150 mls/hr Documented by: Iopamidol (Contrast Allergy Check) 0 ml IV X1 ISABELLA Assessment/Plan All Active Problems (Last Updated 01/15/20 @ 14:[address] Lee Ann English MD) Midgut volvulus (Resolved) Acute abdominal pain (Acute) Lactic acidosis (Acute) Small bowel obstruction (Acute) Status post exploratory laparotomy (Acute) Achalasia (Acute) 54-year-old male with small bowel obstruction status post exploratory laparotomy due to his enteric volvulus on 01/10 1. N.p.o./IV fluids, will place NG to low intermittent wall suction. 2. Lactic acid pending likely could be high due to dehydration with his nausea and vomiting but will hydrate and recheck as well. 3. Pain control?did discuss with patient and his that if his pain does get worse to let us know as he could possibly need surgery during this hospitalization if pain gets worse or increased white blood cell count or changes in vital signs. Lee Ann English M.D. Pager: [phone] [facility] [address] [place] [address], [facility], [address] [place] [address] Office: [phone]
--- NOTE | 2020-01-15 17:10 | RAD_ITS ---
STUDY: X-RAY - ABDOMEN/PELVIS REASON FOR EXAM: Male, 54 years old. NG PLACEMENT 1ST ATTEMPT TECHNIQUE: Frontal view of the chest COMPARISON: None. FINDINGS: Gastric tube is coiled in the distal esophagus turning around superiorly. There is bilateral basilar opacities. RAD/Abdomen Single View (Portable) IMPRESSION: Gastric tube reversed and coiled in the distal esophagus, not reaching the stomach. Electronically Signed: Sebastien Hobbs, at 17:31 EDT Tel , Service support ,
--- NOTE | 2020-01-15 17:18 | RAD_ITS ---
STUDY: X-RAY - ABDOMEN/PELVIS REASON FOR EXAM: Male, 54 years old. NG PLACEMENT 2ND ATTEMPT TECHNIQUE: Frontal view of the upper abdomen COMPARISON: None. FINDINGS: Gastric tube has been advanced and is now located with its tip in the proximal fundus against the greater curvature. There is mild cardiomegaly and left lower lobe atelectasis. RAD/Abdomen Single View IMPRESSION: Gastric tube with tip in the proximal fundus. Electronically Signed: Sebastien Hobbs, at 17:35 EDT Tel , Service support ,
[2020-01-15] MEDS: 0.9% Normal Saline 1,000 ML 1000 ML IV (18:11)
[2020-01-15] MEDS: Morphine 4 MG/ML Syringe IV (18:35)
--- NOTE | 2020-01-15 18:55 | NURSING ---
PT states my stomach hurts after just getting morphine. rates pain 7/10 prior to morphine. Pt grabbing stomach and says its sour like. Pt shaking. Dr. English paged and informed. Pain is 9/10 after morphine. Pt states pain is worse after morphine and dr. English aware. Order to give 1mg dilaudid and then call back. Sp02 83% on RA.
[2020-01-15] MEDS: HYDROmorphone 1 MG/ML Syringe IV (19:19)
--- NOTE | 2020-01-15 19:21 | NURSING ---
dr. English called back. Pt states abd pain is a;little better after morphine. CBC and lactic ordered for 1944. Wants them stat but 30min into the 2nd Bolus which would be the .45% Ns bolus which would be at 1944. Lisa from lab called and made aware that its a stat order but also timed and cant put both in. Lisa said she would try her best.
[2020-01-15] MEDS: 0.45% Normal Saline 1,000 ML 999 ML IV (19:23)
[2020-01-15 20:00] LABS: Absolute Lymphocyte Count 1.15 X10^3/uL (0.83-4.51); Absolute Neutrophil Count 7.7 X10^3/uL (2.0-7.7); Basophil# 0.06 X10^3/uL; Basophil% 0.6 % (0-1); Eosinophil# 0.08 X10^3/uL; Eosinophils% 0.8 % (0-5); Hematocrit 47.1 % (40-54); Hemoglobin 15.2 g/dL (13.0-16.5); Lymphocyte # 1.15 X10^3/ul (4.0); Lymphocyte % 11.4 % (19-41); Mean Corp Hgb Conc 32.3 g/dL (32-36); Mean Corpuscular Hgb 30.5 pg (27.0-32.0); Mean Corpuscular Volume 94.4 fL (80-94); Mean Platelet Vol. 10.4 fl (6.2-12.0); Monocyte# 0.99 X10^3/uL; Monocyte% 9.8 % (0-10); NRBC Flagged by Analyzer 0 % (0-5); Neutrophil # 7.74 X10^3/uL (2.7-7.7); Platelet Count 226 K/mm3 (150-450); RBC Distribution Width CV 14.2 % (11.6-14.6); RBC Distribution Width SD 49.1 fl (35.1-43.9); Red Blood Count 4.99 M/mm3 (4.6-6.2); White Blood Count 10.1 K/mm3 (4.4-11.0)
[2020-01-15 20:38] LABS: Lactic Acid 1.7 mmol/L (0.4-1.9)
[2020-01-15 20:50] LABS: Reflex Lactate? Y
[2020-01-15] MEDS: HYDROmorphone 0.5 MG/0.5 ML SYRINGE IV (21:19)
[2020-01-16] MEDS: 0.9% Normal Saline 1,000 ML 150 ML IV ×2 (00:16→07:03)
[2020-01-16 01:49] VITALS: BP 118/67; PULSE 69; RESP 18; TEMP 36.5; O2SAT 94
--- NOTE | 2020-01-16 05:55 | RAD_ITS ---
STUDY: X-RAY - ABDOMEN/PELVIS REASON FOR EXAM: Male, 54 years old. SBO TECHNIQUE: Frontal views COMPARISON: None. FINDINGS: Atelectasis at the visualized lung bases. Cardiomegaly. Air fluid levels with mild dilatation of small bowel loops. Early obstructive pattern cannot be excluded. There is no demonstrated free abdominal air. Nasogastric tube with tip at the GE junction. It should be advanced further into the stomach. There are skin regine noted over the lower abdomen. Normal visualized osseous structures. RAD/Abd Inc Decub and/or Erect IMPRESSION: Mildly dilated small bowel loops with air-fluid levels. Early obstructive pattern cannot be excluded. Electronically Signed: Varinder Valerio DO at 8:47 EDT Tel [phone], Service support ,
[2020-01-16 06:00] LABS: Absolute Lymphocyte Count 1.51 X10^3/uL (0.83-4.51); Absolute Neutrophil Count 7.4 X10^3/uL (2.0-7.7); Basophil# 0.11 X10^3/uL; Basophil% 1.1 % (0-1); Eosinophil# 0.27 X10^3/uL; Eosinophils% 2.6 % (0-5); Hematocrit 46.7 % (40-54); Lymphocyte # 1.51 X10^3/ul (4.0); Lymphocyte % 14.6 % (19-41); Mean Corp Hgb Conc 32.1 g/dL (32-36); Mean Corpuscular Hgb 30.4 pg (27.0-32.0); Mean Corpuscular Volume 94.7 fL (80-94); Mean Platelet Vol. 10.6 fl (6.2-12.0); Monocyte# 0.96 X10^3/uL; Monocyte% 9.3 % (0-10); NRBC Flagged by Analyzer 0 % (0-5); Neutrophil # 7.44 X10^3/uL (2.7-7.7); Platelet Count 266 K/mm3 (150-450); RBC Distribution Width CV 14.2 % (11.6-14.6); RBC Distribution Width SD 49.3 fl (35.1-43.9); Red Blood Count 4.93 M/mm3 (4.6-6.2); White Blood Count 10.3 K/mm3 (4.4-11.0)
[2020-01-16 06:20] LABS: Anion Gap 9 (5-15); BUN 10 mg/dL (7-18); BUN/Creat Ratio 12.1 RATIO (10-20); Calcium,Total 7.7 mg/dL (8.5-10.1); Chloride 110 mmol/L (98-107); Creatinine, Serum 0.83 mg/dL (0.70-1.30); EST Glomerular Filtration Rate 103 mL/min (>60); Est Glom Filt Rate - Afr Amer 125 mL/min (>60); Estimated Creatinine Clearance 105.05 ml/min; Glucose 78 mg/dL (74-106); Potassium 3.3 mmol/L (3.5-5.1); Sodium Level 142 mmol/L (136-145)
[2020-01-16 07:39] LABS: Magnesium 1.8 mg/dL (1.6-2.6)
--- NOTE | 2020-01-16 07:51 | NURSING ---
Mg level is 1.8 at normal level so this nurse will start Kriders once they are up from pharmacy.
[2020-01-16] MEDS: Potassium Chloride 10mEq/100mL 10 MEQ/100 ML IV.SOLN. 100 MEQ IV BOLUS ×4 (08:34→11:51)
[2020-01-16] MEDS: Lactated Ringers 1,000 ML 100 ML IV ×2 (08:39→20:26)
[2020-01-16 08:42] VITALS: BP 118/71; PULSE 56; RESP 16; TEMP 36.5; O2SAT 94
[2020-01-16 08:45] VITALS: PULSE 56
--- NOTE | 2020-01-16 08:49 | NURSING ---
This nurse explained orders per Dr. Melendrez to advance NG 10cm and showed pt how much 10cm was. Pt refused. No! NO, I'm not letting you touch it. I am getting it out today. I havent slept all night, this thing hurts me and I want it out. This nurse offered pain medication and pt refused. I don't want it. My stomach feels better today and its not draining much anymore. This nurse explained reason/importance of NG tube. Pt still continues to refuse. Pt states I'm aloud to sign myself out if I want too. Pt requested for this nurse to have the papers ready after my potassium is done. 4hours so that will be 1'o'clock, give me my papers then.. This nurse has a call out to Dr. Melendrez.
--- NOTE | 2020-01-16 09:06 | NURSING ---
Dr. English is here on the unit and is aware that pt wants to leave AMA and does not want this nurse to advance NG tube. Dr. English is talking to pt at this time.
--- NOTE | 2020-01-16 09:22 | NURSING ---
Dr. English was in patients room and talked with pt. Pt agreed to stay, not leave AMA and keep NG down but not advance it, just keep it where it is. Dr. English is okay with this.
--- NOTE | 2020-01-16 09:23 | PCM.PN.SRG ---
Patient Problems: Active and Suspected Problems (Last Updated 01/15/20 @ 14:[address] Lee Ann English MD) Small bowel obstruction (Acute) Subjective: Patient's lactic acid did improve with IV fluids initially did have some increased pain after he got to the floor after getting the morphine, patient states he does have a sensitive stomach that Dilaudid did help. Patient has not had any further pain meds since then. Patient states he has been passing a fair amount of flatus. NG has put out a total of 900 cc since getting to the floor about 200 since 6 AM. KUB is still concerning for bowel obstruction, NG appears to barely be in the stomach patient does not want the NG advanced even after discussing, but NG is currently still functional. - Physical Exam Vitals/I&O's: Vital Signs Temp Pulse Resp BP Pulse Ox 97.7 F L 56 L 16 118/71 94 01/16/20 08:42 01/16/20 08:45 01/16/20 08:42 01/16/20 08:42 01/16/20 08:42 Oxygen Flow Rate (L/min) 2 Oxygen Delivery Method Nasal Cannula Weight: 163 lb 9 oz Body Mass Index (BMI) 23.4 Finger Stick Blood Glucose 101 Intake and Output for Last 24 Hours 01/14/20 01/15/20 01/16/20 23:59 23:59 23:59 Intake Total 2755 / 2755 1475 / 1475 Output Total 400 / 400 1000 / 1000 Balance 2355 / 2355 475 / 475 General: Alert, Oriented x3, Cooperative, No apparent distress HEENT: Atraumatic Lungs: Normal air movement Cardiovascular: Regular rate Abdomen: Soft, Non Tender, Non-Distended, - - Incision clean dry and intact with regine, no peritoneal signs Extremities: No clubbing, No cyanosis, No edema Laboratory Results 01/15/20 14:30: WBC 11.8 H, RBC 5.47, Hgb 16.7 H, Hct 50.3, MCV 92.0, MCH 30.5, MCHC 33.2, RDW Std Deviation 47.3 H, RDW Coeff of Julius 14.0, Plt Count 270, MPV 10.0, Immature Gran % (Auto) 0.400, Neut % (Auto) 81.1 H, Lymph % (Auto) 9.5 L, [place] % (Auto) 7.4, Eos % (Auto) 1.0, Baso % (Auto) 0.6, Absolute Neuts (auto) 9.5 H, Absolute Lymphs (auto) 1.12, Nucleated RBC % 0 01/15/20 14:30: Sodium 140, Potassium 3.7, Chloride 105, Carbon Dioxide 28.0, Anion Gap 7, BUN 11, Creatinine 1.09, Estim Creat Clear Calc 79.99, Est GFR (MDRD) Af Amer 91, Est GFR (MDRD) Non-Af 75, BUN/Creatinine Ratio 10.1, Glucose 96, Calcium 8.7 01/15/20 16:45: Lactic Acid 3.0 H* 01/15/20 18:58: WBC 10.1, RBC 4.99, Hgb 15.2, Hct 47.1, MCV 94.4 H, MCH 30.5, MCHC 32.3, RDW Std Deviation 49.1 H, RDW Coeff of Julius 14.2, Plt Count 226, MPV 10.4, Immature Gran % (Auto) 0.400, Neut % (Auto) 77.0 H, Lymph % (Auto) 11.4 L, [place] % (Auto) 9.8, Eos % (Auto) 0.8, Baso % (Auto) 0.6, Absolute Neuts (auto) 7.7, Absolute Lymphs (auto) 1.15, Nucleated RBC % 0 01/15/20 19:45: Lactic Acid 1.7 01/16/20 05:05: WBC 10.3, RBC 4.93, Hgb 15.0, Hct 46.7, MCV 94.7 H, MCH 30.4, MCHC 32.1, RDW Std Deviation 49.3 H, RDW Coeff of Julius 14.2, Plt Count 266, MPV 10.6, Immature Gran % (Auto) 0.400, Neut % (Auto) 72.0 H, Lymph % (Auto) 14.6 L, [place] % (Auto) 9.3, Eos % (Auto) 2.6, Baso % (Auto) 1.1 H, Absolute Neuts (auto) 7.4, Absolute Lymphs (auto) 1.51, Nucleated RBC % 0 01/16/20 05:05: Sodium 142, Potassium 3.3 L, Chloride 110 H, Carbon Dioxide 23.0, Anion Gap 9, BUN 10, Creatinine 0.83, Estim Creat Clear Calc 105.05, Est GFR (MDRD) Af Amer 125, Est GFR (MDRD) Non-Af 103, BUN/Creatinine Ratio 12.1, Glucose 78, Calcium 7.7 L 01/16/20 05:05: Magnesium 1.8 Current Medications Hydromorphone HCl (Dilaudid Inj) 0.5 - 1 mg IV Q2H PRN PRN PRN Reason: Pain Score 1-1010 Last Admin: 01/15/20 21:19 Dose: 1 mg Documented by: Pantoprazole Sodium 40 mg/ (Sodium Chloride) 110 mls @ 330 mls/hr IV Q24 ISABELLA Sodium Chloride () 250 mls @ 15 mls/hr IV .[id number] PRN PRN Reason: Saline Flush Sodium Chloride () 250 mls @ 15 mls/hr IV .[id number] PRN PRN Reason: Additional IVPB Infusion Potassium Chloride () 10 meq in 100 mls @ 100 mls/hr IV BOLUS Q1H [facility] Stop: 01/16/20 11:29 Last Admin: 01/16/20 08:34 Dose: 100 mls/hr Documented by: Lactated Ringer's () 1,000 mls @ 100 mls/hr IV .Q10H [facility] Last Admin: 01/16/20 08:39 Dose: 100 mls/hr Documented by: Ondansetron HCl (Zofran) 4 mg IV Q8H PRN PRN PRN Reason: NAUSEA Sodium Chloride () 10 - 40 ml IV UD PRN PRN Reason: SALINE FLUSH Throat Lozenges (Cepacol Sore Throat Lozenge) 1 - 2 lozenge MUCOUS MEM Q2H PRN PRN PRN Reason: SORE THROAT Medical Necessity - Tobacco Use Smoking Status: Current every day smoker Assessment/Plan All Active Problems (Last Updated 01/15/20 @ 14:[address] Lee Ann English MD) Midgut volvulus (Resolved) Acute abdominal pain (Acute) Lactic acidosis (Acute) Small bowel obstruction (Acute) Status post exploratory laparotomy (Acute) Achalasia (Acute) 54-year-old male with small bowel obstruction status post exploratory laparotomy due to his enteric volvulus on 01/10 1. N.p.o./IV fluids, will place NG to low intermittent wall suction. Patient is very uncomfortable with the NG in his nose did discuss with patient this is necessary and is already put out 900 since last night and 200 from 6 AM this morning. Will change the canister out and check output at noon and possibly do clamping trial. Did want to advance NG however patient is not interested in this, did review CT as well as KUB from this morning with the patient showing that there is still likely partial small bowel obstruction going on 2. Lactic acid improved after receiving fluids within normal limits yesterday 3. Currently patient denies any abdominal pain he would like to go home today did again reviewed the KUB from this morning that his bowels are not better and the NG is actually helping him feel better and wants this is removed he could start to have abdominal pain and nausea and vomiting again. Did also discuss with patient that if he were to leave today it would be AMA likely his insurance would not pay for the stay. Patient was agreeable with staying but would like the NG out as soon as possible. Lee Ann English M.D. Pager: [phone] [facility] [address] [place] [address], [address] [place] [address] Office: [phone]
--- NOTE | 2020-01-16 12:29 | NURSING ---
dr. English is aware that pt had 125ml in canister. Order to clamp for 3 hours and then check residuals.
[2020-01-16 16:12] VITALS: BP 112/79; PULSE 64; RESP 18; TEMP 36.6; O2SAT 95
--- NOTE | 2020-01-16 16:18 | NURSING ---
Ng tube unclamped. checked residuals and obained 150cc of clear, pale yellow color that reminds of phelgm. Informed Dr. English at this time and order to take out NG tube but she wants him to walk around.
--- NOTE | 2020-01-16 16:40 | NURSING ---
NG is out and pt is walking in [place] for the second lap around at unit at this time.
[2020-01-16 20:32] VITALS: BP 114/70; PULSE 65; RESP 16; TEMP 36.9; O2SAT 98
[2020-01-17 02:57] VITALS: BP 108/65; PULSE 68; RESP 16; TEMP 36.6; O2SAT 92
[2020-01-17] MEDS: Lactated Ringers 1,000 ML 80 ML IV (05:54)
--- NOTE | 2020-01-17 06:00 | RAD_ITS ---
STUDY: X-RAY - ABDOMEN/PELVIS REASON FOR EXAM: Male, 54 years old. SBO TECHNIQUE: Two AP supine views of the abdomen and pelvis. COMPARISON: January 16, 2020 2B abdomen FINDINGS: The NG tube is no longer visualized. There is lower lobe atelectasis. Partially visualized mild cardiac enlargement. There are midline surgical skin regine. There is lesser distention of the small bowel. There are a few minimally distended loops of small bowel centrally. There is a small amount of gas in the colon. The liver spleen and kidneys are partially obscured. Normal soft tissue structures. There are mild degenerative changes of the visualized lumbar spine. RAD/Abd Inc Decub and/or Erect IMPRESSION: Lesser caliber small bowel. Minimal postoperative ileus. Postoperative change midline. Lower lobe atelectasis. Mild cardiomegaly. Electronically Signed: Alejandra Hernandez MD at 6:25 EDT Tel , Service support ,
[2020-01-17 08:10] VITALS: BP 108/75; PULSE 65; RESP 14; TEMP 36.7; O2SAT 98
--- NOTE | 2020-01-17 09:56 | PN.SURG_ITS ---
Patient Problems: Active and Suspected Problems (Last Updated 01/15/20 @ 14:[address] Lee Ann English MD) Small bowel obstruction (Acute) Subjective: Denies any abdominal pain, tolerated clears this morning and had normal bowel movement. Patient is ready to go home. - Physical Exam Vitals/I&O's: Vital Signs Temp Pulse Resp BP Pulse Ox 98.1 F 65 14 108/75 98 01/17/20 08:10 01/17/20 08:10 01/17/20 08:10 01/17/20 08:10 01/17/20 08:10 Oxygen Flow Rate (L/min) 2 Oxygen Delivery Method Room Air Weight: 163 lb 9.01 oz Body Mass Index (BMI) 23.4 Finger Stick Blood Glucose 101 Intake and Output for Last 24 Hours 01/15/20 01/16/20 01/17/20 23:59 23:59 23:59 Intake Total 2755 / 2755 3719.17 / 3719.17 898.66 / 898.66 Output Total 400 / 400 1225 / 1225 Balance 2355 / 2355 2494.17 / 2494.17 898.66 / 898.66 General: Alert, Oriented x3, Cooperative, No apparent distress HEENT: Atraumatic Lungs: Normal air movement Cardiovascular: Regular rate Abdomen: Soft, Non Tender, Non-Distended, - - Maykel removed at bedside and Steri-Strips placed. Incision healing well Extremities: No clubbing, No cyanosis, No edema Neurological: Cranial nerves II-XII grossly intact Psych/Mental Status: Normal Affect Current Medications Hydromorphone HCl (Dilaudid Inj) 0.5 - 1 mg IV Q2H PRN PRN PRN Reason: Pain Score 1-04/23 Last Admin: 01/15/20 21:19 Dose: 1 mg Documented by: Pantoprazole Sodium 40 mg/ (Sodium Chloride) 110 mls @ 330 mls/hr IV Q24 ISABELLA Last Admin: 01/17/20 09:48 Dose: 330 mls/hr Documented by: Sodium Chloride () 250 mls @ 15 mls/hr IV .[id number] PRN PRN Reason: Saline Flush Sodium Chloride () 250 mls @ 15 mls/hr IV .[id number] PRN PRN Reason: Additional IVPB Infusion Lactated Ringer's () 1,000 mls @ 60 mls/hr IV .[id number] ISABELLA Last Infusion: 01/17/20 09:49 Dose: 0 mls/hr Documented by: Ondansetron HCl (Zofran) 4 mg IV Q8H PRN PRN PRN Reason: NAUSEA Sodium Chloride () 10 - 40 ml IV UD PRN PRN Reason: SALINE FLUSH Throat Lozenges (Cepacol Sore Throat Lozenge) 1 - 2 lozenge MUCOUS MEM Q2H PRN PRN PRN Reason: SORE THROAT Medical Necessity - Tobacco Use Smoking Status: Current every day smoker Assessment/Plan All Active Problems (Last Updated 01/15/20 @ 14:[address] Lee Ann English MD) Midgut volvulus (Resolved) Acute abdominal pain (Acute) Lactic acidosis (Acute) Small bowel obstruction (Acute) Status post exploratory laparotomy (Acute) Achalasia (Acute) 54-year-old male with small bowel obstruction-resolved, status post exploratory laparotomy due to his enteric volvulus on 01/10 1. Patient go home on clear/full liquids for a few days. Patient is agreeable with plan. Maykel removed at bedside. Follow-up in office in 2 weeks. Lee Ann English M.D. Pager: [phone] [facility] [address] [place] [address], [address] [place] [address] Office: [phone]
--- NOTE | 2020-01-17 10:17 | DCINST_ITS ---
Discharge Diet: - - Clear/full liquids for a couple days then advance to soft diet May shower in (days): 1 - Okay to shower 24 hours after Steri-Strips placed today. Lifting Restrictions: No lifting greater than 20 pounds x 1 week then okay to gradually increase Call your doctor if your incision/area has: Continuous Slow Oozing, Sudden Increased Bleeding, Increased Pain/ Swelling, Increased Redness, Foul Smelling Discharge, Swelling at the incision site Call your doctor if you observe: Fever of 101 or Higher, - - Nausea or vomiting Allergies/Adverse Reactions: Allergies No Known Allergies Allergy (Verified 01/15/20 18:27) Medications to take at Discharge Pantoprazole Sodium [Protonix] 20 mg PO DAILY 01/11/20 Oxycodone HCl/Acetaminophen [Percocet 5/325] 1 - 2 tab PO Q6H PRN PRN 2 Days #10 tab 01/14/20 Primary Care Physician: Malathi Barrera NP-C [Primary Care Provider] - Test Results: Test results from this visit will be discussed in further detail at your follow- up appointment, if applicable. Please Follow Up With: Lee Ann English MD - After 5 PM and on the weekends call [phone] with any concerns When: Call the office for a f/u appt in 2 wks/wk of the ?phone/virtual Proposed Discharge Date: 01/17/20
== END 2020-01-17 11:08 | disposition home or self-care (01) | DRG 389 ==
LOC: ED 16:05 → MS3 17:51
PROVIDERS: Admitting Provider Surgery; Emergency Provider Emergency Medicine; PCP Nurse Practitioner Family; Visit Provider Surgery
DX: K56.600 Partial intestinal obstruction, unspecified as to cause (principal); E87.2 Acidosis; K22.0 Achalasia of cardia; K21.9 Gastro-esophageal reflux disease without esophagitis; F17.200 Nicotine dependence, unspecified, uncomplicated; Z79.899 Other long term (current) drug therapy
CPT/HCPCS: 36415; 74018; 74019; 74177; 80048; 83605; 83735; 85025; 94640; 99251; 99285; 99406; J7030; J7120; Q9967; A4216; G0463; J2405

== ENCOUNTER → 2021-05-04 07:05 | Outpatient (CLI) | payer OTHER, SELFPAY ==
--- NOTE | 2021-05-04 07:07 | CT_ITS ---
STUDY: CT ABDOMEN AND PELVIS WITH CONTRAST REASON FOR EXAM: Male, 55 years old. Abdominal pain and swelling. RADIATION DOSAGE (If Supplied By Facility): CTDIvol = ( 12.77 ) mGy, DLP = ( 447.92 ) mGycm TECHNIQUE: Transaxial images were obtained from the dome of the diaphragm to the symphysis pubis with oral contrast. Oral and amp;amp; IV Readi-CAT and amp;amp; 100mL Isovue-300 was administered. Sagittal and coronal images were reconstructed. Individualized dose optimization techniques were used for this CT. COMPARISON: Comparison is made with prior study dated 01/15/2020. FINDINGS: Mild residual increased markings at the lung bases although there has been improvement as compared to prior study. Coronary artery calcification. Normal liver. Normal gallbladder and extrahepatic biliary system. Normal spleen. Normal pancreas. Normal bilateral adrenal glands. Normal right kidney. Normal left kidney. There is a small hiatal hernia. There is dilatation of the central small bowel loops. The transition point is in the region of the proximal ileum. Large amount of fecal material is seen throughout the colon. The appendix is visualized and appears normal. Normal abdominal aorta. Normal inferior vena cava. Normal retroperitoneum. Normal urinary bladder. Midline anterior ventral hernia containing nondilated transverse colon. Mild degree of loss of height of the superior endplate of the L1 vertebra. CT/Abdomen/Pelvis WITH Contrast IMPRESSION: Dilated small bowel loops with a transition point in the region of the proximal ileum. A large amount of fecal material is seen throughout the colon. This most likely represents a partial small bowel obstruction. Central ventral hernia containing nondilated transverse colon. Electronically Signed: Amado Dawson MD at 13:24 EDT , Service support ,
== END ==
PROVIDERS: PCP Nurse Practitioner Family; Referring Provider Surgery; Visit Provider Surgery
DX: K46.9 Unspecified abdominal hernia without obstruction or gangrene (principal)
CPT/HCPCS: 74177; Q9967

== ENCOUNTER → 2021-05-11 14:20 | Outpatient (CLI) | payer OTHER, SELFPAY ==
[2021-05-11 14:51] LABS: Albumin, Serum 3.2 g/dL (3.2-5.0); Prealbumin 16.9 mg/dL (20.0-40.0)
== END ==
PROVIDERS: PCP Nurse Practitioner Family; Referring Provider Surgery; Visit Provider Surgery
DX: K43.2 Incisional hernia without obstruction or gangrene (principal)
CPT/HCPCS: 36415; 82040; 84134

== ENCOUNTER 2021-06-06 09:04 | Day surgery (SDC) | payer OTHER, SELFPAY ==
[2021-06-06 09:24] VITALS: BP 103/79; PULSE 63; RESP 16; TEMP 36.7; O2SAT 96; BMI 21.8
[2021-06-06] MEDS: Lactated Ringers 1,000 ML 15 ML IV (09:41)
--- NOTE | 2021-06-06 10:01 | HP.PCM_ITS ---
History and Physical Date of Admission: 06/06/21 Date of Service: 05/25/21 MR#:[id number]:[id number]: LUIS ALFREDO JOHNSON #:[id number] Provider:Vianey Huddleston/Sex: 55/M Location:[facility] [place].WSAStatus:Signed Intake Intake Visit Reasons: 2WJ F/U CT RESULTS Chief Complaint: abd pain Allergies No Known Allergies Allergy (Verified 06/01/21 10:24) Medications NK 05/11/21 [History Confirmed 06/01/21] PFSH Medical History (Updated 06/01/21 @ 10:39 by Stefanie Katz) Achalasia CREST (calcinosis, Raynaud's phenomenon, esophageal dysfunction, sclerodactyly, telangiectasia) Former smoker GERD (gastroesophageal reflux disease) Hernia History of stress test Lactic acidosis Midgut volvulus Small bowel obstruction Stomach ache Wears contact lenses Surgical History (Updated 06/01/21 @ 10:39 by Stefanie Katz) Hx of cholecystectomy S/P right inguinal hernia repair Status post exploratory laparotomy Family History Mother Diabetes Social History Smoking Status: Former smoker alcohol intake: never HPI HPI HPI: LUIS ALFREDO JOHNSON, is a 55 M who presents to the office today for follow-up for ventral hernia. Patient states he is still smoking about 11 cigarettes a day. Patient last colonoscopy was in May 2019, he did have a polyp removed at that time however did recommend a repeat colonoscopy in 3 months due to at poor prep. Patient states he did try the abdominal binder and that did not seem to make a difference in his abdominal pain but did the binder did hurt his sides. Patient states his pain is about the same as previous typically more after eating. Patient has been taking Ensure drinks to try to increase his protein as his prealbumin was 16.9 and albumin was 3.2 after the last office visit. ROS General General: No weight change, appetite, fatigue, colon cancer, breast cancer or weakness HEENT HEENT: No difficulty swallowing, eye injury, eye surgery, swollen glands or hoarseness Endo Endocrine: No thyroid disease, diabetes mellitus, thyroid cancer, Hair loss, heat intolerance or cold intolerance Skin Skin: No rash or changing moles Breast Breast: No left breast lump, right breast lump, nipple discharge, breast pain, abnormal mammogram, abnormal US or breast enlargement Musc Musculoskeletal: No back problems, arthritis, rheumatoid arthritis, gout or joint pain Cardio Cardiovascular: No murmur, pacemaker, heart disease, atrial fibrillation, high blood pressure, heart attack, heart stent, palpitations, shortness of breat with exertion or chest pain Psych Psychiatric: No depression, anxiety or hearing voices Resp Respiratory: No shortness of breath, No sleep apnea, No cough, Yes COPD, No asthma, No emphysema and No wheezing Gastro Gastrointestinal: Yes abdominal pain, Yes nausea or vomiting, Yes diarrhea, No constipation, No blood in stool, Yes acid reflux, No hemorrhoids, Yes ulcers, No gallbladder problem and No black,tarry stools Joseph Hematologic: No blood thinners, No blood disorders, No bleeding, No anemia and No blood clots Neuro Neurologic: No system reviewed and no additional complaints, except as documented, No as per HPI, No abnormal gait, No abnormal hearing, No abnormal movements, No abnormal speech, No behavioral changes, No burning sensations, No confusion, No convulsions, No disequilibrium, No dizziness, No localized weakness, No frequent falls, No headache(s), No lack of coordination, No loss of vision, No memory loss, No numbness, No other visual disturbances, No radicular pain, No restless legs, No sensory deficit, No syncope, No tingling, No tremor(s), No weakness and No other Exam Const General: cooperative, healthy appearing, comfortable and no acute distress Neck Neck: normal visual inspection Resp Effort & Inspection: normal respiratory effort Cardio Rate: regular rate GI Inspection: non-distended Palpation: soft, no guarding, hernia (Large midline hernia at laparotomy site, easily reducible) and tender (At hernia) Skin General: other (Small red macule rash on face and arms and body-chronic) Neuro General: patient oriented x3 Psych Affect: normal affect COVID (Procedure Consent) Procedure Criteria Procedure Criteria: Yes Elective The surgeon/proceduralist and patient have discussed in detail the risk of exposure to and/or potential harm posed by the COVID-19 virus with having a surgery/procedure at this time versus the risk of delaying the surgery/procedure. It is not possible to know either the risk of de laying the surgery or procedure or chance of getting an infection with perfect accuracy, but a joint decision was made between the patient and the surgeon/proceduralist to proceed at this time with the scheduled surgery/procedure as indicated on the consent form. 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 Lee Ann English MD: Discussed with patient that I would not want to do his hernia repair until he had to stop smoking for about 4 weeks. Discussed that smoking would make him in a higher weight risk for recurrent hernia or wound infection, and currently unsure if patient's other autoimmune issues could cause any problems. Discussed with patient also that hernia repair may not resolve his abdominal pain with eating. She does have some dilated small bowel and did get a small bowel volvulus with no obvious cause previously. Would plan to look at the bowels during the case to make sure there is no area of partial obstruction. Also discussed patient strongly recommend colonoscopy if I am going to be placing mesh-as patient never did follow-up with GI doctor in [facility] Did offer the patient a second opinion due to the complexity of his medical/surgical situation?patient was uninterested. I have discussed the above with the patient. I have offered the patient colonoscopy for evaluation. I have explained the risks/benefits of the procedure and described the procedure. I have discussed the risks with the patient, including but not limited to: infection, bleeding, perforation of the GI tract requiring emergency surgery, inability to complete the procedure, injury to any internal organs, complications of anesthesia, etc. - the patient understands and agrees to proceed. I have answered all the patient's questions to the patient's satisfaction and the patient has no further questions. The patient has been given instructions for the colon cleansing preparation. Lee Ann English M.D. Pager: [phone] [facility] [address] [place] [address], [address] [place] [address] Office: [phone] Coding Level of Care Code Off vis,est,level 3 Diagnoses Incisional hernia K43.2 CREST syndrome M34.1 Status post exploratory laparotomy Z98.890 Smoking F17.200 06/05/21 1019<Electronically signed by Lee Ann English MD>Date Lee Ann English MD
[2021-06-06 11:07] VITALS: BP 103/74; BP 103/79; PULSE 79; RESP 16; TEMP 36.2; O2SAT 97
--- NOTE | 2021-06-06 11:10 | OP.CCLET_ITS ---
06/06/2021 Ricardo Reinoso Re : Colonoscopy procedure for Flynn Banks Dear Bruce This procedure was performed on Sunday, June 06, 2021. My impressions and recommendations are as follows: Impressions : - Diverticulosis in the sigmoid colon. - The examination was otherwise normal on direct and retroflexion views. - No specimens collected. Recommendations : - Discharge patient to home. - Resume previous diet. - Continue present medications. - Repeat colonoscopy in 10 years for screening purposes. My findings are described in the full procedure note, which is enclosed. If I can be of further assistance, please feel free to contact me at Doctor phone number(s): , Work: . Sincerely, MD Lee Ann Ho MD 06/06/2021 11:10:06 AM This report has been signed electronically.
--- NOTE | 2021-06-06 11:10 | OP.COLON_ITS ---
Patient Name: Flynn Banks Procedure Date: 06/06/2021 9:55 AM Date of : 1965 Age: 55 Procedure: Colonoscopy Indications: High risk colon cancer surveillance: Personal history of colonic polyps, only fair prep at previous colonoscopy recommended repeat in 3 months Providers: Lee Ann English MD Medicines: Monitored Anesthesia Care Patient Profile: This is a 55 year old male. Last Colonoscopy: 2018. Complications: No immediate complications. Procedure: Pre-Anesthesia Assessment: - Prior to the procedure, a History and Physical was performed, and patient medications and allergies were reviewed. The patient's tolerance of previous anesthesia was also reviewed. The risks and benefits of the procedure and the sedation options and risks were discussed with the patient. All questions were answered, and informed consent was obtained. Prior Anticoagulants: The patient has taken no previous anticoagulant or antiplatelet agents. ASA Grade Assessment: Per anesthesia. After reviewing the risks and benefits, the patient was deemed in satisfactory condition to undergo the procedure. After I obtained informed consent, the scope was passed under direct vision. Throughout the procedure, the patient's blood pressure, pulse, and oxygen saturations were monitored continuously. The pediatric colonoscope was introduced through the anus and advanced to the cecum, identified by the appendiceal orifice, ileocecal valve and palpation. The colonoscopy was performed without difficulty. The patient tolerated the procedure well. The quality of the bowel preparation was good. Scope In: 10:40:24 AM Scope Withdrawal Time 0 hours 8 minutes 42 seconds Scope Out: 11:02:37 AM Total Procedure Duration Time 0 hours 22 minutes 13 seconds Findings: The perianal and digital rectal examinations were normal. Multiple small and large-mouthed diverticula were found in the sigmoid colon. The exam was otherwise without abnormality on direct and retroflexion views. Impression: - Diverticulosis in the sigmoid colon. - The examination was otherwise normal on direct and retroflexion views. - No specimens collected. Recommendation: - Discharge patient to home. - Resume previous diet. - Continue present medications. - Repeat colonoscopy in 10 years for screening purposes. Procedure Code(s): --- Professional --- G0105, PT, Colorectal cancer screening; colonoscopy on individual at high risk Diagnosis Code(s): --- Professional --- Z86.010, Personal history of colonic polyps K57.30, Diverticulosis of large intestine without perforation or abscess without bleeding CPT copyright 2017 [employer]. All rights reserved. The codes documented in this report are preliminary and upon factory maintenance manager review may be revised to meet current compliance requirements. MD Lee Ann Ho MD 06/06/2021 11:10:06 AM This report has been signed electronically. Number of Addenda: 0 Note Initiated On: 06/06/2021 9:55 AM
[2021-06-06 11:12] VITALS: BP 103/79; BP 93/59; PULSE 82; RESP 16; O2SAT 97
[2021-06-06 11:17] VITALS: BP 103/79; BP 82/57; PULSE 85; RESP 14; O2SAT 97
[2021-06-06 11:22] VITALS: BP 103/79; BP 110/84; PULSE 73; RESP 16; TEMP 36.1; O2SAT 95
[2021-06-06 11:50] VITALS: BP 103/79
== END 2021-06-06 11:52 ==
LOC: EN 09:05 → AC 11:24
PROVIDERS: PCP Nurse Practitioner Family; Referring Provider Surgery; Visit Provider Surgery
PROC: 0DJD8ZZ Inspection of Lower Intestinal Tract, Via Natural or Artificial Opening Endoscopic (ICD-10-PCS; CPT 45378; principal; 2021-06-06 10:25)
DX: Z12.11 Encounter for screening for malignant neoplasm of colon (principal); K57.30 Diverticulosis of large intestine without perforation or abscess without bleeding; Z20.822 Contact with and (suspected) exposure to COVID-19; K43.2 Incisional hernia without obstruction or gangrene; K21.9 Gastro-esophageal reflux disease without esophagitis; K22.0 Achalasia of cardia; M34.1 CR(E)ST syndrome; Z86.010 Personal history of colon polyps; Z87.891 Personal history of nicotine dependence
CPT/HCPCS: 45378; 87426; J7120; J2405